=== PATIENT | male | born 1980 | race Caucasian/White ===

== ENCOUNTER 2018-04-21 13:33 | Emergency (ER) | payer SELFPAY ==
[~2018-04-21] VITALS: Ht 165.1 cm; Wt 90.7 kg
[~2018-04-21 13:33] MED LIST: AZIT-21 PO; CETI10CA PO; CLOT15CR4 TP; DIPH1TAB45 PO; DIPH25CA79 PO; DIPH50CA PO; DOXY100T2 PO; GUAI120016 PO; HC2.5C30 TOP; MECL25TA3 PO; METH4TAB PO; NAPR-243 PO; NF-ESOM40C PO; PRD20T PO; PRD50T PO; TRM50T PO
[2018-04-21] MEDS ORDERED: FLUORESCEIN (FLUOR-I-STRIPS) 1 MG STRP OU ONE (14:30)
[2018-04-21] MEDS ORDERED: BSS 15 ML IR ONE (14:30)
[2018-04-21] MEDS ORDERED: POLY/TRIMETH (POLYTRIM) OPHTH 10 ML BTL OU ONE (14:30)
[2018-04-21] MEDS ORDERED: TETRACAINE 0.5% OPHTH SOLN 4 ML BTL (SINGLE DOSE ONLY) OU ONE (14:30)
[2018-04-21] MEDS ORDERED: RX-TOBRA/DEXAMETH (TOBRADEX) OP. SUSP 2.5 ML BTL ONE (15:22)
--- NOTE | 2018-04-21 15:42 | ED EENT ---
History of Present Illness General Chief Complaint: Eye Problems Stated Complaint: EYE PAIN Nursing Triage Note: PT CO OF L EYE PAIN STATES GOT SOMETHING IN IT YESTERDAY, STATES FEELS LIKE STILL IN IT Source: patient Exam Limitations: no limitations History of Present Illness Date Seen by Provider: Apr 21, 2018 Time Seen by Provider: 14:30 Initial Comments The patient is a 37 year old male who presents to the emergency room for left eye pain and possible foreign body. 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 No visual loss. Timing/Duration: yesterday Location: eye (L) Prearrival Treatment: flushing eyes Associated Symptoms: denies symptoms Allergies and Home Medications Allergies Coded Allergies: Hydrocodone (Verified Adverse Reaction, MIGRAIN, 06/07/12) Home Medications Cetirizine HCl 10 Mg Capsule, 10 MG PO DAILY, (Reported) Patient Home Medication List Home Medication List Reviewed: Yes Review of Systems Review of Systems Constitutional: no symptoms reported, see HPI Eyes: See HPI, Foreign Body Sensation, Pain; Denies Vision Changes All Other Systems Reviewed Negative Unless Noted: Yes Past Zpbdfzc-Xqmwgm-Oynqkg Hx Past Med/Social Hx: Reviewed Nursing Past Med/Soc Hx Patient Social History Alcohol Use: Denies Use Recreational Drug Use: No Smoking Status: Never a Smoker Recent Foreign Travel: No Contact w/Someone Who Travel: No Recent Infectious Disease Expo: No Recent Hopitalizations: No Physical Abuse: No Sexual Abuse: No Immunizations Up To Date Tetanus Booster (TDap): Unknown Date of Influenza Vaccine: Mar 26, 2013 Seasonal Allergies Seasonal Allergies: Yes Past Medical History Surgeries: No Respiratory: No Cardiac: No Neurological: No Reproductive Disorders: No Sexually Transmitted Disease: No Genitourinary: No Gastrointestinal: No Gastroesophageal Reflux Musculoskeletal: No Endocrine: No HEENT: No Cancer: No Psychosocial: No Integumentary: No Blood Disorders: No Family Medical History Reviewed Nursing Family Hx No Pertinent Family Hx Visual Acuity : Eye Location: Bilaterally Vision Acuity Degree: 20/20 Physical Exam Vital Signs Vital Signs - First Documented 04/21/18 14:20 Temp 97.4 Pulse 94 Resp 18 B/P (MAP) 142/105 (117) Pulse Ox 97 Height, Weight, BMI Height: 5'5.00" Weight: 200lbs. oz. 90.474641ud; 32.11 BMI Method:Stated General Appearance: WD/WN, no apparent distress Eyes: right eye normal inspection; left eye conjunctival inflammation, left eye foreign body, left eye other (conjunctival abrasion at the 7oclock position. Small piece of grass was removed with a cotton swab. ); bilateral eye PERRL, bilateral eye EOMI Nose: normal inspection Cardiovascular: normal peripheral pulses, regular rate, rhythm, no edema, no gallop, no JVD, no murmur Respiratory: chest non-tender, lungs clear, normal breath sounds, no respiratory distress, no accessory muscle use Neurologic/Psychiatric: alert, normal mood/affect, oriented x 3 Skin: normal color, warm/dry Progress/Results/Core Measures Results/Orders My Orders Medications Given in ED Vital Signs/I&O Blood Pressure Mean: 117 Progress Progress Note : Time: 15:40 Progress Note I have seen and evaluated the patient. I have discussed the findings with Dr. Florez and he recommends putting him on Tobradex for inflammation and abx coverage and having him follow up with his office next week. The patient agrees with plan of care. Return precautions were given. Departure Impression Primary Impression: Foreign body in conjunctival sac Disposition: HOME, SELF-CARE Condition: Stable/Unchanged Departure-Patient Inst. Decision time for Depature: 15:40 Referrals: [facility][1[facility]NATHALIE (PCP/Family) Primary Care Physician ANGELI GILES OD Patient Instructions: Black Eye, Corneal Abrasion (DC) Add. Discharge Instructions: Used eyedrops as prescribed 2 drops 3 times a day to the affected eye for 5 days. [facility] Curiel[facility] office within 1 week for recheck. Return back to the emergency room for any worsening symptoms or concerns as needed. All discharge instructions reviewed with patient and/or family. Voiced understanding. VINCE VELASCO Apr 21, 2018 15:42
[2018-04-21 15:47] VITALS: BP 142/105
== END 2018-04-21 15:47 | disposition home or self-care (01) ==
LOC: EDUNIT# 13:33 → ER 13:34
DX: T15.12XA Foreign body in conjunctival sac, left eye, initial encounter (principal); K21.9 Gastro-esophageal reflux disease without esophagitis; Z88.5 Allergy status to narcotic agent
CPT/HCPCS: 99283

== ENCOUNTER 2019-06-27 11:40 | Emergency (ER) | payer SELFPAY ==
[~2019-06-27] VITALS: Ht 165.1 cm; Wt 90.1 kg
[2019-06-27] MEDS ORDERED: cefTRIAXone 1,000 MG/2.86 ml vial (IM ONLY) IM ONE (14:45)
[2019-06-27] MEDS ORDERED: LIDOCAINE 1% INJ 20 ML 20 ML VIAL INJ ONE (14:45)
[2019-06-27] MEDS ORDERED: AZIT250T12 PO (14:48)
--- NOTE | 2019-06-27 14:48 | ED General ---
General Chief Complaint: Cough/Cold/Flu Symptoms Stated Complaint: CONGESTION Nursing Triage Note: AMB TO ROOM C/O COUGH AND CONGESTION FOR 24HRS. REPORTS UNABALE TO TAKE PO PREDISONE IT CAUSES NAUSEA. Nursing Sepsis Screen: No Definite Risk Source of Information: Patient Exam Limitations: No Limitations Allergies and Home Medications Allergies Coded Allergies: hydrocodone (Verified Adverse Reaction, Unknown, MIGRAIN, 06/27/19) Uncoded Allergies: PREDISONE (Adverse Reaction, Unknown, CAUSES NAUSEA, 06/27/19) Home Medications Cetirizine HCl 10 Mg Capsule, 10 MG PO DAILY, (Reported) Past Ozrfszd-Saclpd-Zblmzb Hx Patient Social History Alcohol Use: Denies Use Recreational Drug Use: No Smoking Status: Never a Smoker Recent Foreign Travel: No Contact w/Someone Who Travel: No Recent Infectious Disease Expo: No Recent Hopitalizations: No Immunizations Up To Date Tetanus Booster (TDap): Unknown Date of Influenza Vaccine: Mar 26, 2013 Seasonal Allergies Seasonal Allergies: Yes Past Medical History Surgeries: No Respiratory: No Cardiac: No Neurological: No Reproductive Disorders: No Sexually Transmitted Disease: No Genitourinary: No Gastrointestinal: No Gastroesophageal Reflux Musculoskeletal: No Endocrine: No HEENT: No Cancer: No Psychosocial: No Integumentary: No Blood Disorders: No Family Medical History No Pertinent Family Hx Physical Exam Vital Signs Vital Signs - First Documented 06/27/19 12:23 Temp 36.8 Pulse 99 Resp 18 B/P (MAP) 140/108 (119) Pulse Ox 98 Capillary Refill : Less Than 3 Seconds Height, Weight, BMI Height: 5'5.00" Weight: 200lbs. oz. 90.873365no; 33.00 BMI Method:Stated Progress/Results/Core Measures Suspected Sepsis Recent Fever Within 48 Hours: No Infection Criteria Present: Suspected New Infection New/Unexplained Altered Menta: No Sepsis Screen: No Definite Risk SIRS Temperature: Pulse: 99 Respiratory Rate: 18 Blood Pressure 140 /108 Mean: 119 Results/Orders Micro Results Microbiology 06/27/19 Influenza Types A,B Antigen (TARAS) - Final, Complete My Orders Orders - TALYA BURLESON MD Influenza A And B Antigens (06/27/19 13:46) Rocephin 1000mg Im (06/27/19 14:45) Lidocaine 1% Inj 20 Ml (Xylocaine 1% Inj (06/27/19 14:45) Vital Signs/I&O 06/27/19 12:23 Temp 36.8 Pulse 99 Resp 18 B/P (MAP) 140/108 (119) Pulse Ox 98 Capillary Refill : Less Than 3 Seconds Blood Pressure Mean: 119 Departure Impression Primary Impression: Flu-like symptoms Additional Impression: Pharyngitis Qualified Codes: J02.9 - Acute pharyngitis, unspecified Disposition: 01 HOME, SELF-CARE Condition: Improved Departure-Patient Inst. Decision time for Depature: 14:46 Referrals: [facility] [place] (PCP/Family) Primary Care Physician Patient Instructions: Sore Throat in Adults Add. Discharge Instructions: Complete your antibiotics as prescribed. You may take Tylenol and/or ibuprofen for pain. Drink plenty of clear liquids to stay well-hydrated. Return to care if you have worsening symptoms despite treatment. All discharge instructions reviewed with patient and/or family. Voiced understan titi. Scripts Azithromycin (Azithromycin) 250 Mg Tablet 250 MG PO UD, #6 TAB TAKE 2 TABLETS ON DAY ONE THEN TAKE 1 TABLET DAILY FOR FOUR MORE DAYS Prov: TALYA BURLESON MD 06/27/19 TALYA BURLESON MD Jun 27, 2019 14:48
[2019-06-27 15:00] VITALS: BP 140/108
== END 2019-06-27 15:08 | disposition home or self-care (01) ==
LOC: EDUNIT# 11:40 → ER 11:41
DX: R09.89 Other specified symptoms and signs involving the circulatory and respiratory systems (principal); J02.9 Acute pharyngitis, unspecified; K21.9 Gastro-esophageal reflux disease without esophagitis; Z88.5 Allergy status to narcotic agent; Z88.8 Allergy status to other drugs, medicaments and biological substances
CPT/HCPCS: 87804; 96372

== ENCOUNTER 2019-07-27 17:46 | Emergency (ER) | payer BC, OTHER ==
[~2019-07-27] VITALS: Ht 165 cm; Wt 86.0 kg
[~2019-07-27 17:46] MED LIST changes: +AZIT250T12 PO
[2019-07-27] MEDS ORDERED: GUAI200T4 PO (18:00)
[2019-07-27] MEDS ORDERED: NF-ESOM40C PO (18:00)
[2019-07-27] MEDS ORDERED: DIPH25CA79 PO (18:00)
--- NOTE | 2019-07-27 18:06 | ED Upper Extremity ---
General Chief Complaint: Upper Extremity Stated Complaint: RT HAND INJ Nursing Triage Note: PT TO TRIAGE CO OF PUNCHING WALL W R HAND. HAS PAIN AND SWELLING Nursing Sepsis Screen: No Definite Risk Source: patient Exam Limitations: no limitations History of Present Illness Date Seen by Provider: Jul 27, 2019 Time Seen by Provider: 18:05 Initial Comments To ER with right hand pain over the fourth and fifth metacarpal after he punched a wall about 30 minutes prior to arrival. The pain shoots all the way up to his elbow. Onset: just prior to arrival Severity: moderate Pain/Injury Location: right hand Method of Injury: direct blow Modifying Factors: Improves With Movement Allergies and Home Medications Allergies Coded Allergies: hydrocodone (Verified Adverse Reaction, Unknown, MIGRAIN, 06/27/19) Uncoded Allergies: PREDISONE (Adverse Reaction, Unknown, CAUSES NAUSEA, 06/27/19) Home Medications Cetirizine HCl 10 Mg Capsule, 10 MG PO DAILY, (Reported) Oxycodone HCl/Acetaminophen 1 Each Tablet, 1 TAB PO Q4H Prescribed by: RAYNE GUTIERREZ on 07/27/19 0818 Patient Home Medication List Home Medication List Reviewed: Yes Review of Systems Constitutional: see HPI EENTM: see HPI Respiratory: no symptoms reported Cardiovascular: no symptoms reported Genitourinary: no symptoms reported Musculoskeletal: see HPI Skin: no symptoms reported Psychiatric/Neurological: No Symptoms Reported Past Yplxwgn-Zgsmdt-Itawyi Hx Patient Social History Alcohol Use: Denies Use Recreational Drug Use: No Smoking Status: Never a Smoker Recent Foreign Travel: No Contact w/Someone Who Travel: No Recent Infectious Disease Expo: No Recent Hopitalizations: No Physical Abuse: No Sexual Abuse: No Immunizations Up To Date Tetanus Booster (TDap): Unknown Date of Influenza Vaccine: Mar 26, 2013 Seasonal Allergies Seasonal Allergies: Yes Past Medical History Surgeries: No Respiratory: No Cardiac: No Neurological: No Reproductive Disorders: No Sexually Transmitted Disease: No Genitourinary: No Gastrointestinal: No Gastroesophageal Reflux Musculoskeletal: No Endocrine: No HEENT: No Cancer: No Psychosocial: No Integumentary: No Blood Disorders: No Family Medical History No Pertinent Family Hx Physical Exam Vital Signs Vital Signs - First Documented 07/27/19 17:53 Temp 36.8 Pulse 92 Resp 18 B/P (MAP) 142/85 (104) Pulse Ox 98 Capillary Refill : Less Than 3 Seconds Height, Weight, BMI Height: 5'5.00" Weight: 200lbs. oz. 90.841417cw; 31.00 BMI Method:Stated General Appearance: WD/WN, no apparent distress HEENT: PERRL/EOMI, normal ENT inspection Neck: non-tender, full range of motion Respiratory: no respiratory distress, no accessory muscle use Shoulder: normal inspection, non-tender Elbow/Forearm: normal inspection, non-tender Wrist: Yes non-tender Hand: Right, deformity, ecchymosis, limited ROM Neurologic/Psychiatric: alert, normal mood/affect, oriented x 3 Skin: normal color, warm/dry Progress/Results/Core Measures Results/Orders My Orders Orders - RAYNE GUTIERREZ APRN Hand, Right, 3 Views (07/27/19 18:01) Oxycodone/Apap 5/325mg Tablet (Percocet (07/27/19 18:15) Hand, Right, 2 Views (07/27/19 19:02) Medications Given in ED Current Medications Medications Dose Ordered Sig/Janice Route Start Time Stop Time Status Last Admin Dose Admin Oxycodone/ Acetaminophen 1 tab ONCE ONCE PO 07/27/19 18:15 07/27/19 18:16 DC 07/27/19 18:12 1 TAB Vital Signs/I&O 07/27/19 17:53 Temp 36.8 Pulse 92 Resp 18 B/P (MAP) 142/85 (104) Pulse Ox 98 Blood Pressure Mean: 104 Departure Communication (Admissions) Hematoma block using 4 mL of 0.5% bupivacaine without epinephrine. Fracture reduced as best possible. Splinted in an ulnar gutter style splint, repeat x- rays. Impression Primary Impression: Boxers fracture Qualified Codes: S62.339A - Displaced fracture of neck of unspecified metacarpal bone, initial encounter for closed fracture Disposition: HOME, SELF-CARE Condition: Stable Departure-Patient Inst. Decision time for Depature: 18:52 Referrals: [facility] (PCP/Family) Primary Care Physician YUNG STARK MD,LISA Evans MD Patient Instructions: Boxer's Fracture Add. Discharge Instructions: 1. Keep the hand in a splint at all times until you follow up with orthopedics. Call orthopedic surgeon of your choosing. List of local orthopedists has been provided for you. All discharge instructions reviewed with patient and/or family. Voiced understanding. Scripts Oxycodone HCl/Acetaminophen (Percocet 5-325 mg Tablet) 1 Each Tablet 1 TAB PO Q4H for PAIN-MODERATE MDD 6 TABS for 7 Days, #20 TAB Prov: RAYNE GUTIERREZ APRN 07/27/19 RAYNE GUTIERREZ APRN Jul 27, 2019 18:06
[2019-07-27] MEDS ORDERED: oxyCODONE/APAP 5/325MG (PERCOCET 5) TABLET PO ONE (18:15)
--- NOTE | 2019-07-27 18:20 | Diagnostic Imaging Report ---
INDICATION: Right hand injury, pain. COMPARISON: None. FINDINGS: Four views of the right hand demonstrate a nondisplaced but angulated distal fifth metacarpal fracture. There is no intra-articular involvement. No foreign body. IMPRESSION: Angulated distal fifth metacarpal fracture. Dictated by: Dictated on workstation # [id number]
[2019-07-27] MEDS ORDERED: OXYC1TAB87 PO (18:54)
[2019-07-27 19:20] VITALS: BP 137/81
--- NOTE | 2019-07-27 19:22 | Diagnostic Imaging Report ---
INDICATION: Cast placement COMPARISON: Imaging from the same date TECHNIQUE: Two radiographs of the right hand dated 07/27/2019 FINDINGS: Interval placement of splint material overlying the medial right hand. Previously noted 5th metacarpal neck fracture is again identified. Alignment appears essentially stable from the prior exam. Slight apex posterior medial angulation is again seen. No new fracture or dislocation. IMPRESSION: Interval splinting of previously noted 5th metacarpal neck fracture with alignment remaining stable. Dictated by: Dictated on workstation # [id number]
== END 2019-07-27 19:22 | disposition home or self-care (01) ==
LOC: EDUNIT# 17:46 → ER 17:47
DX: S62.336A Displaced fracture of neck of fifth metacarpal bone, right hand, initial encounter for closed fracture (principal); Z88.8 Allergy status to other drugs, medicaments and biological substances; W22.8XXA Striking against or struck by other objects, initial encounter
CPT/HCPCS: 26605; 29125; 73120; 73130

== ENCOUNTER 2020-01-08 23:09 | Emergency (ER) | payer BC ==
[~2020-01-08] VITALS: Ht 165 cm; Wt 90.1 kg
[~2020-01-08 23:09] MED LIST changes: +GUAI200T4 PO; +OXYC1TAB87 PO
[2020-01-08 23:37] LABS: BILIRUBIN,URINE NEGATIVE (NEGATIVE); CLARITY,URINE CLEAR; COLOR,URINE YELLOW; GLUCOSE, URINE (UA) NEGATIVE (NEGATIVE); KETONES,URINE NEGATIVE (NEGATIVE); LEUKOCYTE ESTERASE ,URINE NEGATIVE (NEGATIVE); NITRITE,URINE NEGATIVE (NEGATIVE); PH,URINE 5.5 (5-9); PROTEIN,URINE NEGATIVE (NEGATIVE)
[2020-01-08 23:41] LABS: BASOPHILS % (AUTO) 0 % (0-10); EOSINOPHILS # (AUTO) 0.2 10^3/uL (0.0-0.3); EOSINOPHILS % (AUTO) 2 % (0-10); HEMATOCRIT 43 % (40-54); HEMOGLOBIN 15.2 G/DL (13.3-17.7); LYMPHOCYTES # (AUTO) 4.2 X 10^3 (1.0-4.0); LYMPHOCYTES % (AUTO) 38 % (12-44); MEAN CORPUSCULAR HEMOGLOBIN 30 PG (25-34); MEAN CORPUSCULAR HGB CONC 35 G/DL (32-36); MEAN CORPUSCULAR VOLUME 84 FL (80-99); MEAN PLATELET VOLUME 9.5 FL (7.4-10.4); MONOCYTES # (AUTO) 0.8 X 10^3 (0.0-1.0); MONOCYTES % (AUTO) 7 % (0-12); NEUTROPHILS # (AUTO) 5.9 X 10^3 (1.8-7.8); NEUTROPHILS % (AUTO) 53 % (42-75); PLATELET COUNT 265 10^3/uL (130-400); RED CELL DISTRIBUTION WIDTH 12.9 % (10.0-14.5); WHITE BLOOD COUNT 11.2 10^3/uL (4.3-11.0)
[2020-01-08 23:49] LABS: BACTERIA,URINE NEGATIVE /HPF; SQUAMOUS EPITHELIAL CELL,UR 0-2 /HPF
[2020-01-08] MEDS ORDERED: KETOROLAC 30 MG/ML VIAL IVP STA (23:50)
[2020-01-08 23:53] LABS: ALBUMIN 4.5 GM/DL (3.2-4.5)
[2020-01-08 23:54] LABS: POTASSIUM 3.8 MMOL/L (3.6-5.0)
[2020-01-08 23:55] LABS: CALCIUM 9.4 MG/DL (8.5-10.1)
[2020-01-08 23:56] LABS: TOTAL PROTEIN 8.1 GM/DL (6.4-8.2)
[2020-01-08 23:58] LABS: BILIRUBIN,TOTAL 0.4 MG/DL (0.1-1.0)
[2020-01-09] LABS: CREATININE SERUM 1.4 MG/DL (0.60-1.30)
[2020-01-09] MEDS ORDERED: LACTATED RINGERS 1,000 ML IV ONE (00:06)
--- NOTE | 2020-01-09 00:06 | ED Abdominal Pain ---
General Chief Complaint: Abdominal/GI Problems Stated Complaint: POSS HERNIA Nursing Triage Note: Patient reports swelling in his L groin. 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 PCP: VIDAL, VIRI ESCALANTE Allergies and Home Medications Allergies Coded Allergies: hydrocodone (Verified Adverse Reaction, Unknown, MIGRAIN, 06/27/19) Uncoded Allergies: PREDISONE (Adverse Reaction, Unknown, CAUSES NAUSEA, 06/27/19) Home Medications Cetirizine HCl 10 Mg Capsule, 10 MG PO DAILY, (Reported) Oxycodone HCl/Acetaminophen 1 Each Tablet, 1 TAB PO Q4H Prescribed by: RAYNE GUTIERREZ on 07/27/19 1854 Tramadol HCl 50 Mg Tablet, 50 MG PO Q4H Prescribed by: SALOMÓN FERNANDEZ on 01/09/20 0140 Patient Home Medication List Home Medication List Reviewed: Yes Review of Systems Review of Systems Constitutional: no symptoms reported; No chills, No diaphoresis, No dizziness, No fever, No malaise, No weakness Respiratory: No Symptoms Reported Cardiovascular: No Symptoms Reported Gastrointestinal: See HPI, Abdominal Pain; Denies Constipated, Denies Diarrhea, Denies Nausea, Denies Vomiting Genitourinary: No Symptoms Reported; Denies Burning, Denies Discharge, Denies Drainage, Denies Flank Pain, Denies Hematuria, Denies Pain, Denies Urgency Musculoskeletal: no symptoms reported Skin: no symptoms reported Psychiatric/Neurological: No Symptoms Reported Endocrine: No Symptoms Reported Hematologic/Lymphatic: No Symptoms Reported Past Sabmcgp-Cejpjg-Gljjxj Hx Patient Social History Alcohol Use: Denies Use Recreational Drug Use: No Smoking Status: Never a Smoker 2nd Hand Smoke Exposure: No Recent Foreign Travel: No Contact w/Someone Who Travel: No Recent Infectious Disease Expo: No Recent Hopitalizations: No Immunizations Up To Date Tetanus Booster (TDap): Unknown Date of Influenza Vaccine: Mar 26, 2013 Seasonal Allergies Seasonal Allergies: Yes Past Medical History Surgeries: No Respiratory: No Cardiac: No Neurological: No Reproductive Disorders: No Sexually Transmitted Disease: No Genitourinary: No Gastrointestinal: Yes Gastroesophageal Reflux Musculoskeletal: No Endocrine: No HEENT: Yes (ALLERGIES) Cancer: No Psychosocial: No Integumentary: No Blood Disorders: No Family Medical History No Pertinent Family Hx Physical Exam Vital Signs Vital Signs - First Documented 01/08/20 23:16 Temp 37.0 Pulse 103 Resp 18 B/P (MAP) 148/105 (119) Pulse Ox 98 Capillary Refill : Less Than 3 Seconds Height/Weight/BMI Height: 5'5.00" Weight: 200lbs. oz. 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, no motor/sensory deficits, alert, normal mood/affect, oriented x 3 Skin: normal color, warm/dry Progress/Results/Core Measures Results/Orders Lab Results Laboratory Tests Test 01/08/20 23:20 01/08/20 23:30 Range/Units Urine Color YELLOW Urine Clarity CLEAR Urine pH 5.5 5-9 Urine Specific [place] >=1.030 1.016-1.022 Urine Protein NEGATIVE NEGATIVE Urine Glucose (UA) NEGATIVE NEGATIVE Urine Ketones NEGATIVE NEGATIVE Urine Nitrite NEGATIVE NEGATIVE Urine Bilirubin NEGATIVE NEGATIVE Urine Urobilinogen 0.2 < = 1.0 MG/DL Urine Leukocyte Esterase NEGATIVE NEGATIVE Urine RBC (Auto) NEGATIVE NEGATIVE Urine RBC NONE /HPF Urine WBC NONE /HPF Urine Squamous Epithelial Cells 0-2 /HPF Urine Crystals NONE /LPF Urine Bacteria NEGATIVE /HPF Urine Casts NONE /LPF Urine Mucus NEGATIVE /LPF Urine Culture Indicated NO White Blood Count 11.2 H 4.3-11.0 10^3/uL Red Blood Count 5.13 4.35-5.85 10^6/uL Hemoglobin 15.2 13.3-17.7 G/DL Hematocrit 43 40-54 % Mean Corpuscular Volume 84 80-99 FL Mean Corpuscular Hemoglobin 30 25-34 PG Mean Corpuscular Hemoglobin Concent 35 32-36 G/DL Red Cell Distribution Width 12.9 10.0-14.5 % Platelet Count 265 130-400 10^3/uL Mean Platelet Volume 9.5 7.4-10.4 FL Neutrophils (%) (Auto) 53 42-75 % Lymphocytes (%) (Auto) 38 12-44 % Monocytes (%) (Auto) 7 0-12 % Eosinophils (%) (Auto) 2 0-10 % Basophils (%) (Auto) 0 0-10 % Neutrophils # (Auto) 5.9 1.8-7.8 X 10^3 Lymphocytes # (Auto) 4.2 H 1.0-4.0 X 10^3 Monocytes # (Auto) 0.8 0.0-1.0 X 10^3 Eosinophils # (Auto) 0.2 0.0-0.3 10^3/uL Basophils # (Auto) 0.0 0.0-0.1 10^3/uL Sodium Level 140 135-145 MMOL/L Potassium Level 3.8 3.6-5.0 MMOL/L Chloride Level 105 98-107 MMOL/L Carbon Dioxide Level 20 L 21-32 MMOL/L Anion Gap 15 H 5-14 MMOL/L Blood Urea Nitrogen 19 H 7-18 MG/DL Creatinine 1.40 H 0.60-1.30 MG/DL Estimat Glomerular Filtration Rate 57 BUN/Creatinine Ratio 14 Glucose Level 120 H 70-105 MG/DL Calcium Level 9.4 8.5-10.1 MG/DL Corrected Calcium 9.0 8.5-10.1 MG/DL Total Bilirubin 0.4 0.1-1.0 MG/DL Aspartate Amino Transf (AST/SGOT) 34 5-34 U/L Alanine Aminotransferase (ALT/SGPT) 55 0-55 U/L Alkaline Phosphatase 106 40-136 U/L Total Protein 8.1 6.4-8.2 GM/DL Albumin 4.5 3.2-4.5 GM/DL Amylase Level 76 25-125 U/L Lipase 53 8-78 U/L My Orders Orders - JIM,SALOMÓN K DO Ed Iv/Invasive Line Start (01/08/20 23:15) Amylase (01/08/20 23:15) Cbc With Automated Diff (01/08/20 23:15) Comprehensive Metabolic Panel (01/08/20 23:15) Lipase (01/08/20 23:15) Ua Culture If Indicated (01/08/20 23:15) Ketorolac Injection (Toradol Injection) (01/08/20 23:50) Ct Abdomen/Pelvis W (01/09/20 00:01) Abdomen, Flat & Upright/Decub (01/09/20 00:01) Ed Iv/Invasive Line Start (01/09/20 00:06) Lactated Ringers (Lr 1000 Ml Iv Solution (01/09/20 00:06) Iohexol Injection (Omnipaque 350 Mg/Ml 1 (01/09/20 00:30) Ns (Ivpb) (Sodium Chloride 0.9% Ivpb Bag (01/09/20 00:30) Rx-Tramadol Hcl (Rx-Ultram) (01/09/20 01:38) Medications Given in ED Current Medications Medications Dose Ordered Sig/Janice Route Start Time Stop Time Status Last Admin Dose Admin Iohexol 100 ml ONCE ONCE IV 01/09/20 00:30 01/09/20 00:31 UNV 01/09/20 00:27 100 ML Lactated Ringer's 1,000 ml @ 0 mls/hr Q0M ONCE IV 01/09/20 00:06 01/09/20 00:07 DC 01/09/20 00:42 0 MLS/HR Sodium Chloride 80 ml ONCE ONCE IV 01/09/20 00:30 01/09/20 00:31 UNV 01/09/20 00:27 80 ML Vital Signs/I&O 01/08/20 23:16 Temp 37.0 Pulse 103 Resp 18 B/P (MAP) 148/105 (119) Pulse Ox 98 Blood Pressure Mean: 119 Progress Progress Note : Progress Note GIVEN TORADOL FOR PAIN WITH MODERATE IMPROVEMENT AFTER OBTAINING CT RESULTS, REDUCTION OF HERNIA ATTEMPTED--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 PT STATES IS NOT A "HARD KNOT" LIKE IT WAS EARLIER, BUT IS STILL BULGING, BUT NOT BIG. ABLE TO PARTIALLY REDUCE IT, BUT UNABLE TO COMPLETELY REDUCE IT. UNABLE TO GIVE ADDITIONAL PAIN MEDICATION OR MUSCLE RELAXANT HE DROVE HIMSELF AND DOES NOT HAVE ANYONE TO GIVE HIM A RIDE HOME AT THIS HOUR Diagnostic Imaging Comments ABDOMEN XRAYS--NO ACUTE PROCESS, PENDING RADIOLOGIST REVIEW CT ABDOMEN / PELVIS--LEFT INGUINAL FAT-CONTAINING HERNIA APPROXIMATELY 4.5 CM IN DIAMETER. NO OBSTRUCTION--PER STAT RAD VIA FAX AT 0131 Reviewed: Reviewed by Me Departure Impression Primary Impression: Left inguinal hernia Disposition: HOME, SELF-CARE Condition: Stable Departure-Patient Inst. Referrals: [facility] (PCP/Family) Primary Care Physician MARÍA HURTADO DO Patient Instructions: Groin Hernia (DC) Add. Discharge Instructions: TYLENOL AND IBUPROFEN NEEDED FOR PAIN NO LIFTING OVER 5 LBS, NO TWISTING OR BENDING AT WAIST FOLLOW UP WITH DR. HURTADO OR SURGEON OF CHOICE THIS WEEK FOR FURTHER CARE, RETURN TO ER IF WORSE All discharge instructions reviewed with patient and/or family. Voiced unders tanding. Scripts Tramadol HCl (Ultram) 50 Mg Tablet 50 MG PO Q4H for Pain, #20 TAB Prov: SALOMÓN FERNANDEZ DO 01/09/20 Work/School Note: Work Release Form Date Seen in the Emergency Department: J 2019 Return to Work: Jan 10, 2020 Other Restrictions Listed Below: NO LIFTING OVER 5 LBS, NO TWISTING OR BENDING AT WAIST UNTIL CLEARED BY SALOMÓN ALBERT DO Jan 09, 2020 00:06
[2020-01-09] MEDS ORDERED: IOHEXOL 350 MG/ML 100 ML (OMNIPAQUE 350) VIAL IV ONE (00:30)
[2020-01-09] MEDS ORDERED: NS 100 ML (IVPB) BAG IV ONE (00:30)
[2020-01-09] MEDS ORDERED: RX-TRAMADOL 50 MG (ULTRAM) TAB PPK#4 PO STA (01:38)
[2020-01-09] MEDS ORDERED: TRAM-42 PO (01:40)
[2020-01-09 01:46] VITALS: BP 134/98
--- NOTE | 2020-01-09 06:38 | Diagnostic Imaging Report ---
INDICATION: Abdominal pain. FINDINGS: Upright and supine abdomen. Lung bases are clear. No organomegaly. No pathologic calcification. There is normal stool and gas pattern throughout colon. Stomach and small bowel are not distended. No bony abnormalities. IMPRESSION: Normal abdomen series. Dictated by: Dictated on workstation # [id number]
--- NOTE | 2020-01-09 06:40 | Diagnostic Imaging Report ---
CT ABDOMEN/PELVIS W PROCEDURE: CT abdomen and pelvis with contrast. TECHNIQUE: Multiple contiguous axial images were obtained through the abdomen and pelvis after administration of intravenous contrast. INDICATION: Groin pain COMPARISON: None. FINDINGS: There is mild low-density throughout the liver indicating steatosis. No gallbladder, pancreatic or splenic abnormality identified. Adrenal glands and kidneys are also unremarkable. There is no evidence of bowel obstruction. No free fluid is seen within the abdominal or pelvic cavities. There is herniation of fat into the inguinal canals, greater on the left. No bowel hernia is identified. Partially opacified urinary bladder is unremarkable. Great vessels of the abdomen and pelvis are unremarkable. There is no evidence of acute osseous abnormality. IMPRESSION: Bilateral inguinal hernias containing fat, larger on the left. There is no evidence of bowel hernia or obstruction or other complication. Dictated by: Dictated on workstation # [id number]
== END 2020-01-09 01:47 | disposition home or self-care (01) ==
LOC: EDUNIT# 23:09 → ER 23:11
DX: K40.90 Unilateral inguinal hernia, without obstruction or gangrene, not specified as recurrent (principal); Z88.6 Allergy status to analgesic agent; Z88.8 Allergy status to other drugs, medicaments and biological substances
CPT/HCPCS: 36415; 74019; 74177; 80053; 81000; 82150; 83690; 85025

== ENCOUNTER 2020-01-14 05:42 | Outpatient (RCR) | payer BC ==
[~2020-01-14] VITALS: Ht 165.1 cm; Wt 87.6 kg
[~2020-01-14 05:42] MED LIST changes: +TRAM-42 PO
== END 2020-01-14 11:21 | disposition home or self-care (01) ==
LOC: PREOP 05:42
PROVIDERS: ATTEND Surgery
DX: Z01.812 Encounter for preprocedural laboratory examination (principal); K40.20 Bilateral inguinal hernia, without obstruction or gangrene, not specified as recurrent; Z20.828 Contact with and (suspected) exposure to other viral communicable diseases
CPT/HCPCS: 87635

== ENCOUNTER 2020-01-17 10:58 | Day surgery (SDC) | payer BC ==
[~2020-01-17] VITALS: Ht 165 cm; Wt 87.6 kg
[2020-01-17] VITALS (12 sets, daily range): BP systolic 120–138; BP diastolic 66–111
[2020-01-17] MEDS ORDERED: ceFAZolin 2 GM IV Premixed 50 ML IV ONE (11:15)
[2020-01-17] MEDS: LACTATED RINGERS 1,000 ML IV PRN ×2 (11:41→14:40)
--- NOTE | 2020-01-17 11:57 | Progress Note-Pre Operative ---
Pre-Operative Progress Note H&P Reviewed The H&P was reviewed, patient examined and no changes noted. Date Seen by Provider: Jan 17, 2020 Time Seen by Provider: 11:55 Date H&P Reviewed: Jan 17, 2020 Time H&P Reviewed: 11:50 Pre-Operative Diagnosis: symptomatic bilateral inguinal hernias PILAR VALENTIN APRN Jan 17, 2020 11:57
[2020-01-17] MEDS ORDERED: HYDR2TAB30 PO (12:00)
[2020-01-17] MEDS ORDERED: ACETAMINOPHEN 325 MG TABLET PO PRN (12:00)
[2020-01-17] MEDS ORDERED: ONDANSETRON 4 MG/2 ML (SDV) Z0FRAN IVP PRN ×2 (12:00→15:00)
--- NOTE | 2020-01-17 12:01 | Discharge Inst-Surgical ---
D/C Lap Instructions-KIDO Reconcile Patient Problems Problems Reviewed?: Yes New, Converted, or Re-Newed RX: RX on Chart Follow Up Appt in 2 weeks Activity as tolerated No driving for 24 hours No driving while on pain medications Incentive Spirometry use every 2 hours while awake Regular Diet Symptoms to Report: Fever over 101 degree F, Nausea/Vomiting Infection Signs and Symptoms to report: Increased redness, Foul odor of wound, Increased drainage Bathing instructions: May shower Operative Area Clean/Dry; Keep incision clean/dry If any problems/questions: Contact your physician or go to Emergency Room PILAR VALENTIN APRN Jan 17, 2020 12:01
[2020-01-17] MEDS ORDERED: BUP/EPI 0.5% 1:200,000 (SENSORCAINE) 30 ML VIAL ONE (12:39)
[2020-01-17] MEDS ORDERED: fentaNYL INJECTION 100 MCG/2 ML AMP ONE ×2 (12:59→15:15)
[2020-01-17] MEDS ORDERED: MIDAZOLAM 2 MG/2 ML (VERSED) VIAL ONE (13:00)
[2020-01-17] MEDS ORDERED: LIDOCAINE PF 2% 5 ML (XYLOCAINE) VIAL ONE (13:53)
[2020-01-17] MEDS ORDERED: ONDANSETRON 4 MG/2 ML (SDV) Z0FRAN ONE (13:53)
[2020-01-17] MEDS ORDERED: ROCURONIUM 10 MG/ML 5 ML SYRINGE IV ONE (13:53)
[2020-01-17] MEDS ORDERED: proPOfol 200 MG/20 ML (DIPRIVAN) VIAL IV ONE (13:53)
[2020-01-17] MEDS ORDERED: SEVOFLURANE (ULTANE) 15 ML INHAL SOLN ONE (14:04)
[2020-01-17] MEDS ORDERED: HYDROmorphone 2 MG/ML VIAL (DILAUDID) ONE (14:28)
[2020-01-17] MEDS ORDERED: NEOSTIGMINE 3 MG/3 ML VIAL ONE (14:29)
[2020-01-17] MEDS ORDERED: GLYCOPYRROLATE 0.2 MG/ML (ROBINUL) 2 ML VIAL ONE (14:29)
--- NOTE | 2020-01-17 14:42 | Progress Note-Post Operative ---
Post-Operative Progess Note Surgeon (s)/Restaurant Hospitality Manager (s) Surgeon ERICH ROBINS MD Restaurant Hospitality Manager: fer wharton EPIC ANESTHESIA ANALYST Pre-Operative Diagnosis symptomatic bilateral inguinal hernias Post-Operative Diagnosis indirect left, direct right inguinal hernias Procedure & Operative Findings Date of Procedure 01/17/20 Procedure Performed/Findings laparoscopic bilateral inguinal hernia repair with mesh. Anesthesia Type get Estimated Blood Loss Estimated blood loss (mL): minimal Specimens/Packing Specimens Removed none ERICH ROBINS MD Jan 17, 2020 14:42
[2020-01-17] MEDS ORDERED: HYDROmorphone 2 MG/ML VIAL (DILAUDID) IV ONE ×2 (15:00→17:00)
--- NOTE | 2020-01-17 15:04 | Anesthesia-General Post-Op ---
General Patient Condition Mental Status/LOC: Same as Preop Cardiovascular: Satisfactory Nausea/Vomiting: Absent Respiratory: Satisfactory Pain: Controlled Complications: Absent Post Op Complications Complications None Follow Up Care/Instructions Patient Instructions None needed. Anesthesia/Patient Condition Patient Condition Patient is doing well, no complaints, stable vital signs, no apparent adverse anesthesia problems. No complications reported per nursing. [place] [facility] [place]: Yes AMANDEEP SMITH CRNA Jan 17, 2020 15:04
[2020-01-17] MEDS ORDERED: fentaNYL INJECTION 100 MCG/2 ML AMP IVP ONE (15:15)
--- NOTE | 2020-01-17 15:22 | OPERATIVE REPORT ---
DATE OF SERVICE: 01/17/2020 ATTENDING PRIMARY DEPARTMENT CHAIRPERSON: Grzegorz Clements APRN. PREOPERATIVE DIAGNOSIS: Bilateral symptomatic reducible inguinal hernias. POSTOPERATIVE DIAGNOSIS: Right direct and left indirect inguinal hernia, both reducible. PROCEDURE PERFORMED: Laparoscopic bilateral inguinal hernia repair with mesh. SURGEON: Erich Robins MD. EVENING ANCHOR: Darrion Gonzalez APRN. ANESTHESIA: General endotracheal. ESTIMATED BLOOD LOSS: Minimal. FINDINGS: Same as postoperative diagnosis. DISPOSITION: The patient tolerated the procedure well. INDICATIONS FOR PROCEDURE: The patient is a 39-year-old male who was seen for left inguinal pain and bulge. He states that this was there for approximately nine months and has grown larger in size and become more painful. He presented to the emergency department and a CT scan was performed, which did show bilateral inguinal hernias with the left being larger than the right. DESCRIPTION OF PROCEDURE: The patient was brought to the operating room and laid supine on the table. After adequate IV pain and stated medications and general endotracheal intubation, the abdomen was prepped and draped in standard surgical fashion. A 0.5% Marcaine with epinephrine was then used to anesthetize the overlying skin in the infraumbilical rim and a crescent shaped skin incision was made using a 15 blade. A sharp towel clamp was used to retract the abdominal wall anteriorly and a Veress needle inserted with a low opening pressure of 0 mmHg. The abdomen was insufflated to 15 mmHg pressure. The Veress needle removed and a 10 mm XL trocar placed followed by a 10 mm 45-degree angle laparoscope visualizing the peritoneal cavity. A 4-quadrant abdominal exploration was performed. A left indirect inguinal hernia was identified with omentum within the hernia sac. There was a right direct inguinal hernia identified with nothing within the hernia sac. Under direct visualization, we then proceeded to place bilateral 5 mm ports after the skin and peritoneal lining were anesthetized using 0.5% Marcaine with epinephrine and a transverse skin incision was made using a 15 blade. The patient was then placed in a Trendelenburg position. We first proceeded with repair of the left inguinal hernia and a wedge of peritoneal lining was opened using a Sonicision and we proceeded laterally towards the conjoined tendon and inguinal ligament laterally and to Arpit's ligament medially. We then proceeded with inferior dissection, dissecting out the hernia sac with blunt dissection as well as a Sonicision. The cord and its surrounding contents identified and spared throughout the process as well as visualization of good hemostasis. A medium size left polypropylene mesh was then placed through the 10 mm port site and tacked to Arpit's ligament medially with Absorbable Tack and conjoint tendon laterally. The peritoneal lining was then placed over the mesh and a few absorbable tacks placed to hold this in place with visualization of good hemostasis. We then proceeded to repair the right inguinal hernia in a similar manner. A wedge of peritoneal lining was opened using the Sonicision. We proceeded medially towards the conjoined tendon and inguinal ligament laterally to Arpit's ligament medially. The hernia sac was then dissected out with blunt dissection as well as a Sonicision. The cord and its contents identified and spared throughout the process with visualization of good hemostasis as well. A right 3DMax polypropylene mesh was then placed through the 10 mm port site and tacked to Arpit's ligament medially with absorbable tacks and conjoint tendon laterally. The peritoneal lining was then placed over the mesh and a few tacks placed to hold this in place with visualization of good hemostasis. Good hemostasis was observed. The 10 mm port site fascia and peritoneum were then closed. The abdomen was then desufflated and the remaining ports were removed. All skin incisions were closed using 4-0 Monocryl subcuticular sutures. Wounds were then cleaned and covered with Dermabond. The patient tolerated the procedure well. We will start IV normal pain medication as well as a clear liquid diet. Once he is tolerating clears, has good pain control with oral pain medications and ambulating well, we will discharge him home. He will be instructed to do no heavy lifting or exertion absolutely for two weeks and then slowly incorporate some lifting and exertion, not 100% until six weeks from the surgery date. Job ID: [id number] DocumentID: [id number] Dictated Date: 01/17/2020 14:51:57 Coremaker Date: 01/17/2020 15:21:27 Dictated By: ERICH ROBINS MD
[2020-01-17] MEDS ORDERED: HYDROmorphone 2 MG/ML VIAL (DILAUDID) IV PRN (17:15)
[2020-01-17] MEDS ORDERED: PANTOPRAZOLE 40 MG (PROTONIX) TAB PO ONE (18:00)
--- NOTE | 2020-01-17 18:18 | NUR ---
CHETAN VILLALOBOS admitted to room , with an admitting diagnosis of bilateral hernia repair , on from day surgery via bed, accompanied by staff .CHETAN VILLALOBOS introduced to surroundings, call light, bed controls, phone, TV, temperature control, lights, meal times, smoking policy, visitor policy, side rail policy, bathrooms and showers. Patient Rights given to patient in the handbook. CHETAN VILLALOBOS verbalizes understanding that [facility] is not responsible for the loss or damage to any personal effects or valuables that are kept in the patients posession during their hospitalization. The following Patient Care Plans and discharge were discussed with the patient. CHETAN VILLALOBOS verbalizes understanding of Interdisciplinary Patient Education. Patient informed about the Rapid Response Team and its purpose.
[2020-01-17] MEDS: fentaNYL INJECTION 100 MCG/2 ML AMP IVP PRN ×2 (20:21→22:46)
[2020-01-17] MEDS: guaiFENesin (MUCINEX) 600 MG TAB PO SCH (20:26)
[2020-01-17] MEDS ORDERED: diphenhydrAMINE 25 MG TAB (BENADRYL) PO SCH (21:00)
[2020-01-18] MEDS: HYDROmorphone (DILAUDID) 2 MG TAB PO PRN ×4 (00:41→11:37)
[2020-01-18] MEDS: fentaNYL INJECTION 100 MCG/2 ML AMP IVP PRN (02:22)
[2020-01-18 04:41] VITALS: BP 115/65
[2020-01-18] MEDS: guaiFENesin (MUCINEX) 600 MG TAB PO SCH (08:05)
[2020-01-18 08:19] VITALS: BP 124/68
[2020-01-18] MEDS ORDERED: LORATADINE (CLARITIN) 10 MG TAB PO SCH (09:00)
[2020-01-18] MEDS ORDERED: DOCUSATE SODIUM 100 MG (COLACE) CAP PO SCH (09:00)
[2020-01-18] MEDS ORDERED: PANTOPRAZOLE 40 MG (PROTONIX) TAB PO SCH (09:00)
[2020-01-18] MEDS ORDERED: SUCRALFATE 1 GM (CARAFATE) TAB PO ONE (10:15)
[2020-01-18] MEDS ORDERED: PANTOPRAZOLE 40 MG (PROTONIX) VIAL IV ONE (10:15)
[2020-01-18] MEDS ORDERED: SIMETHICONE 80 MG (MYLICON) CHEW PO ONE (10:15)
--- NOTE | 2020-01-18 10:48 | Progress Note ---
Subjective Date Seen by a Provider: Jan 18, 2020 Time Seen by a Provider: 10:30 Subjective/Events-last exam doing better. tolerating diet and ambulating. pain controlled with PO meds. urinating well. Objective Exam Vital Signs Date Time Temp Pulse Resp B/P (MAP) Pulse Ox O2 Delivery O2 Flow Rate FiO2 01/18/20 08:55 95 Room Air 01/18/20 08:19 37.4 89 18 124/68 (86) 95 Room Air 01/18/20 04:41 37.4 86 18 115/65 (82) 94 Room Air 01/17/20 23:45 37.7 114 18 123/66 (85) 95 Room Air 01/17/20 20:20 Nasal Cannula 2.00 01/17/20 19:12 36.2 89 16 138/79 (98) 97 Nasal Cannula 2.00 01/17/20 18:11 Nasal Cannula 2.00 01/17/20 16:50 36.3 97 18 130/88 (102) 96 Nasal Cannula 01/17/20 16:20 36.3 89 18 130/88 (102) 88 Nasal Cannula 01/17/20 15:50 Nasal Cannula 2 01/17/20 15:50 35.6 80 16 136/88 99 01/17/20 15:50 35.6 80 16 136/88 (104) 99 Room Air 01/17/20 15:50 36.3 18 128/84 (99) 96 Nasal Cannula 2 01/17/20 15:40 18 126/88 (101) 96 Nasal Cannula 2 01/17/20 15:38 Nasal Cannula 2 01/17/20 15:30 18 133/93 (106) 96 OxyMask 3 01/17/20 15:26 OxyMask 3 01/17/20 15:20 18 133/88 (103) 99 OxyMask 3 01/17/20 15:12 OxyMask 6 01/17/20 15:10 18 131/84 (100) 97 OxyMask 6 01/17/20 15:05 OxyMask 6 01/17/20 15:00 18 120/98 (105) 100 OxyMask 6 01/17/20 14:50 OxyMask 6 01/17/20 14:50 36.5 20 135/88 (104) 100 OxyMask 6 7/23/20 11:10 36.8 94 18 133/111 118 97 Room Air I & O 01/18/20 07:00 Intake Total 3535 ml Output Total 925 ml Balance 2610 ml Capillary Refill : Less Than 3 SecondsLess Than 3 Seconds General Appearance: No Apparent Distress HEENT: PERRL/EOMI Neck: Full Range of Motion Respiratory: Chest Non Tender, Lungs Clear, Normal Breath Sounds Cardiovascular: Regular Rate, Rhythm Gastrointestinal: normal bowel sounds, soft, tenderness Extremity: Normal Capillary Refill Neurologic/Psychiatric: Alert, Oriented x3 Skin: Normal Color Lymphatic: No Adenopathy Assessment/Plan Assessment/Plan Assess & Plan/Chief Complaint s/p lap bilateral ing hernia repair with uncontrolled pain. doing better today. continue IS and ambulation. diet as tolerated. home soon. no lifting exertion for 6 weeks. ERICH ROBINS MD Jan 18, 2020 10:48
--- NOTE | 2020-01-18 10:58 | NUR ---
SAHRA Hamm made initial visit. Pt recovering from surgey and expressed no anabaptist needs at this time.
== END 2020-01-18 12:16 | disposition home or self-care (01) ==
LOC: SDC 10:58 → 4TH 17:43 → UNDOADMOB 17:53 → UNDODISOB 01-18 12:16 → SDC 01-18 12:16
PROVIDERS: ATTEND Surgery
DX: K40.20 Bilateral inguinal hernia, without obstruction or gangrene, not specified as recurrent (principal); K21.9 Gastro-esophageal reflux disease without esophagitis; Z11.2 Encounter for screening for other bacterial diseases
CPT/HCPCS: 49650; 87081; C1781 ×2

== ENCOUNTER 2020-03-15 19:10 | Emergency (ER) | payer BC ==
[~2020-03-15] VITALS: Ht 165 cm; Wt 87.0 kg
[~2020-03-15 19:10] MED LIST changes: +HYDR2TAB30 PO
[2020-03-15] MEDS ORDERED: LACTATED RINGERS 1,000 ML IV ONE (19:50)
--- NOTE | 2020-03-15 19:56 | ED Abdominal Pain ---
General Chief Complaint: Abdominal/GI Problems Stated Complaint: ABD PAIN Source of Information: Patient Exam Limitations: No Limitations History of Present Illness Date Seen by Provider: Mar 15, 2020 Time Seen by Provider: 19:42 Initial Comments Patient presents to the ER by private conveyance from home with chief complaint low bilateral abdominal pelvic pain currently 7 out of 10, constant. He says he's had this pain for the past month since having bilateral hernia repair by Dr. Whiting. He says he followed up a couple days after the surgery with the nurse practitioner until you're still having pain but the narcotic pain medicine was not helping. They said it was normal. He stopped using the opiates after a day and a half. He has been using ibuprofen 800 mg with moderate relief of pain. His last dose was at 1:30 this afternoon, 6 and half hours prior to arrival. He does not want anything for pain.. No nausea vomiting fever chills dysuria constipation. He's been passing bowel movements some of them have been soft. He has not tried follow-up with the surgeon since then. He says he's felt some fluid moving around in the area. No discharge Allergies and Home Medications Allergies Coded Allergies: hydrocodone (Verified Adverse Reaction, Unknown, MIGRAIN, 06/27/19) oxycodone (Verified Adverse Reaction, Unknown, MAKES ME ANGRY, 01/11/20) Home Medications Cetirizine HCl 10 Mg Capsule, 10 MG PO DAILY, (Reported) Diphenhydramine HCl 25 Mg Capsule, 25 MG PO HS, (Reported) Esomeprazole Magnesium 40 Mg Cap, 40 MG PO DAILY, (Reported) Guaifenesin 200 Mg Tablet, 200 MG PO BID, (Reported) Hydromorphone HCl 2 Mg Tablet, 1 MG PO Q4H Prescribed by: PILAR VALENTIN on 01/17/20 1200 Tramadol HCl 50 Mg Tablet, 50 MG PO Q4H Prescribed by: SALOMÓN FERNANDEZ on 01/09/20 0140 Patient Home Medication List Home Medication List Reviewed: Yes Review of Systems Review of Systems Constitutional: No chills, No diaphoresis, No fever, No malaise EENTM: No Blurred Vision, No Double Vision Respiratory: Denies Cough, Denies Shortness of Air Cardiovascular: Denies Chest Pain, Denies Lightheadedness Gastrointestinal: Denies Constipated, Denies Diarrhea, Denies Nausea Genitourinary: Denies Burning, Denies Drainage, Denies Frequency Musculoskeletal: No back pain, No joint pain All Other Systems Reviewed Negative Unless Noted: Yes Past Jbacbbh-Enztko-Ypqldg Hx Patient Social History Alcohol Use: Denies Use Recreational Drug Use: No Smoking Status: Never a Smoker 2nd Hand Smoke Exposure: No Recent Foreign Travel: No Contact w/Someone Who Travel: No Recent Hopitalizations: No Immunizations Up To Date Tetanus Booster (TDap): Unknown Date of Influenza Vaccine: Mar 26, 2013 Seasonal Allergies Seasonal Allergies: Yes Past Medical History Surgeries: No Respiratory: No Cardiac: No Neurological: No Reproductive Disorders: No Sexually Transmitted Disease: No Genitourinary: No Gastrointestinal: Yes Gastroesophageal Reflux Musculoskeletal: No Endocrine: No HEENT: Yes (ALLERGIES) Cancer: No Psychosocial: No Integumentary: No Blood Disorders: No Family Medical History No Pertinent Family Hx Physical Exam Vital Signs Vital Signs - First Documented 03/15/20 19:42 Temp 36.0 Pulse 91 Resp 18 B/P (MAP) 167/95 (119) O2 Delivery Room Air Capillary Refill : Height/Weight/BMI Height: 5'5.00" Weight: 200lbs. oz. 90.147460ch; 32.17 BMI Method:Stated General Appearance: WD/WN, mild distress HEENT: PERRL/EOMI, pharynx normal Neck: full range of motion, supple, normal inspection Respiratory: lungs clear, normal breath sounds, no respiratory distress, no accessory muscle use Cardiovascular: normal peripheral pulses, regular rate, rhythm, no edema Peripheral Pulses: 2+ Radial Pulses (R), 2+ Radial Pulses (L) Gastrointestinal: normal bowel sounds, soft, tenderness (quite tender to palpation along the lower abdomen with no fluctuance) Neurologic/Psychiatric: alert, normal mood/affect, oriented x 3 Skin: normal color, warm/dry Progress/Results/Core Measures Results/Orders Lab Results Laboratory Tests Test 03/15/20 19:50 03/15/20 20:00 Range/Units Urine Color YELLOW Urine Clarity CLEAR Urine pH 5.5 5-9 Urine Specific [place] >=1.030 1.016-1.022 Urine Protein TRACE H NEGATIVE Urine Glucose (UA) TRACE H NEGATIVE Urine Ketones NEGATIVE NEGATIVE Urine Nitrite NEGATIVE NEGATIVE Urine Bilirubin NEGATIVE NEGATIVE Urine Urobilinogen 0.2 < = 1.0 MG/DL Urine Leukocyte Esterase NEGATIVE NEGATIVE Urine RBC (Auto) TRACE-I NEGATIVE Urine RBC NONE /HPF Urine WBC 0-2 /HPF Urine Squamous Epithelial Cells RARE /HPF Urine Crystals NONE /LPF Urine Bacteria NEGATIVE /HPF Urine Casts NONE /LPF Urine Mucus SMALL H /LPF Urine Culture Indicated NO White Blood Count 9.2 4.3-11.0 10^3/uL Red Blood Count 4.91 4.35-5.85 10^6/uL Hemoglobin 14.3 13.3-17.7 G/DL Hematocrit 40 40-54 % Mean Corpuscular Volume 82 80-99 FL Mean Corpuscular Hemoglobin 29 25-34 PG Mean Corpuscular Hemoglobin Concent 36 32-36 G/DL Red Cell Distribution Width 12.3 10.0-14.5 % Platelet Count 254 130-400 10^3/uL Mean Platelet Volume 9.6 7.4-10.4 FL Neutrophils (%) (Auto) 56 42-75 % Lymphocytes (%) (Auto) 35 12-44 % Monocytes (%) (Auto) 7 0-12 % Eosinophils (%) (Auto) 2 0-10 % Basophils (%) (Auto) 0 0-10 % Neutrophils # (Auto) 5.2 1.8-7.8 X 10^3 Lymphocytes # (Auto) 3.2 1.0-4.0 X 10^3 Monocytes # (Auto) 0.7 0.0-1.0 X 10^3 Eosinophils # (Auto) 0.2 0.0-0.3 10^3/uL Basophils # (Auto) 0.0 0.0-0.1 10^3/uL Sodium Level 139 135-145 MMOL/L Potassium Level 3.8 3.6-5.0 MMOL/L Chloride Level 104 98-107 MMOL/L Carbon Dioxide Level 23 21-32 MMOL/L Anion Gap 12 5-14 MMOL/L Blood Urea Nitrogen 12 7-18 MG/DL Creatinine 1.03 0.60-1.30 MG/DL Estimat Glomerular Filtration Rate > 60 BUN/Creatinine Ratio 12 Glucose Level 119 H 70-105 MG/DL Calcium Level 9.1 8.5-10.1 MG/DL Corrected Calcium 8.9 8.5-10.1 MG/DL Total Bilirubin 0.3 0.1-1.0 MG/DL Aspartate Amino Transf (AST/SGOT) 47 H 5-34 U/L Alanine Aminotransferase (ALT/SGPT) 73 H 0-55 U/L Alkaline Phosphatase 96 40-136 U/L C-Reactive Protein High Sensitivity 1.26 H 0.00-0.50 MG/DL Total Protein 8.0 6.4-8.2 GM/DL Albumin 4.3 3.2-4.5 GM/DL My Orders Orders - PHOEBE POLO Ua Culture If Indicated (03/15/20 19:13) Cbc With Automated Diff (03/15/20 19:50) Comprehensive Metabolic Panel (03/15/20 19:50) Hs C Reactive Protein (03/15/20 19:50) Ct Abdomen/Pelvis W (03/15/20 19:50) Ed Iv/Invasive Line Start (03/15/20 19:50) Lactated Ringers (Lr 1000 Ml Iv Solution (03/15/20 19:50) Iohexol Injection (Omnipaque 350 Mg/Ml 1 (03/15/20 20:15) Received Contrast (Hold Metformin- Contr (03/15/20 20:15) Ns (Ivpb) (Sodium Chloride 0.9% Ivpb Bag (03/15/20 20:15) Medications Given in ED Current Medications Medications Dose Ordered Sig/Janice Route Start Time Stop Time Status Last Admin Dose Admin Iohexol 100 ml ONCE ONCE IV 03/15/20 20:15 03/15/20 20:16 DC 03/15/20 20:27 100 ML Sodium Chloride 100 ml ONCE ONCE IV 03/15/20 20:15 03/15/20 20:16 DC 03/15/20 20:27 80 ML Vital Signs/I&O 03/15/20 19:42 Temp 36.0 Pulse 91 Resp 18 B/P (MAP) 167/95 (119) O2 Delivery Room Air Progress Progress Note #1: Time: 20:08 Progress Note Suspect perhaps he has a seroma from the surgery. Plan to get some labs and CT if applicable. He declined anything for pain. Progress Note #2: Time: 21:24 [address] the [address] demonstrates some proximal mild ileitis. We put him on some probiotics and rifaximin for potential small intestinal bacterial overgrowth. Since This has been going on for over a month antibiotics are probably indicated. He was not able to provide us with a stool sample. We will encourage him to follow-up in the next 1-[address] Whiting or primary care. Diagnostic Imaging Diagonstic Imaging: CT Plain Films/CT/US/NM/MRI: abdomen, pelvis Comments NAME: CHETAN VILLALOBOS [facility] REC#: [id number] PT STATUS: REG ER : 1980 PHYSICIAN: PHOEBE POLO MD ADMIT DATE: 03/15/20/ER Signed Date of Exam:03/15/20 CT ABDOMEN/PELVIS W PROCEDURE: CT abdomen and pelvis with contrast. TECHNIQUE: Multiple contiguous axial images were obtained through the abdomen and pelvis after administration of intravenous contrast. Auto Exposure Controls were utilized during the CT exam to meet ALARA standards for radiation dose reduction. DATE: March 15, 2020. COMPARISON: KUB January 09, 2020. CT abdomen and pelvis January 09, 2020. INDICATION: 39-year-old male, lower abdominal pain. FINDINGS: The visualized portions of the lungs are clear. The heart is not enlarged. There is no identified pericardial effusion. There is diffuse fatty infiltration of the liver. The outer liver contours are not nodular. There is no identified liver lesion. The main, right and left portal veins are patent. The gallbladder is unremarkable. There is no biliary ductal dilation. The main pancreatic duct is not abnormally dilated. Unremarkable appearance of the pancreatic parenchyma. The spleen is normal in size. There is a small accessory splenule on axial image 19. The adrenal glands are unremarkable. Unremarkable appearance of the renal parenchyma. The urinary collecting systems are not distended. There is no identified renal or ureteral stone. The urinary bladder is unremarkable. The appendix is not well seen. There is mild dilation of the distal ileum up to approximately 2.1 cm in diameter without abnormal wall thickening. There is no identified site of abnormal wall thickening of the intestinal tract. There is no free intraperitoneal air. There is no drainable fluid collection. There is no free pelvic fluid. There is no identified abnormally enlarged lymph node in the abdomen or pelvis meeting CT size criteria for adenopathy. There are atherosclerotic calcifications noted. There is a benign L2 vertebral body hemangioma. There is no acute bony abnormality. IMPRESSION: CT abdomen and pelvis: 1. Diffuse fatty infiltration of the liver. 2. Very mild dilation of the distal ileum without abnormal wall thickening of bowel. This is of questionable significance. 3. No identified acute abnormality in the abdomen or pelvis. 4. There are mild atherosclerotic calcifications noted. Dictated by: Dictated on workstation # [id number] Dict: 03/15/202027 Trans: 03/15/202111 [facility] [id number] Interpreted by: NILESH KELLY MD Electronically signed by: NILESH KELLY MD 03/15/202111 Reviewed: Reviewed by Me Departure Impression Primary Impression: Ileitis Disposition: HOME, SELF-CARE Condition: Stable Departure-Patient Inst. Decision time for Depature: 21:23 Referrals: [facility] [place] (PCP/Family) Primary Care Physician Patient Instructions: [id number] Add. Discharge Instructions: You appear to have a infection of the small intestines. You do not need to stay in the hospital. Plan is since his been going on for a month to put you on some antibiotics as well as pickler helper a bottle of probiotics. Take one capsule of probiotics twice a day for the next 2-4 weeks. Take one tablet of rifaximin 3 times a day for the next 2 weeks. Plan to follow-up with either your primary care doctor or Dr. Whiting in the next 1-2 weeks. If you develop fevers, intractable vomiting or other worrisome symptoms then return to the nearest ER. Heating pads may be helpful for discomfort. Tylenol 1000 mg every 8 hours as necessary for pain. All discharge instructions reviewed with patient and/or family. Voiced understanding. Scripts L.acidoph & Paracasei,B.lactis (Probiotic) 1 Each Capsule 1 EACH PO BID for 30 Days, #60 CAP 0 Refills Prov: PHOEBE POLO 03/15/20 Rifaximin (Xifaxan) 550 Mg Tablet 550 MG PO TID for 14 Days, #42 TAB 0 Refills Prov: PHOEBE POLO 03/15/20 Work/School Note: Work Release Form Date Seen in the Emergency Department: Mar 15, 2020 Return to Work: Mar 16, 2020 Restrictions: No Restrictions Copy Copies To 1: ERICH WHITING MD, TITUS J Mar 15, 2020 19:56
[2020-03-15 19:59] LABS: BILIRUBIN,URINE NEGATIVE (NEGATIVE); CLARITY,URINE CLEAR; COLOR,URINE YELLOW; GLUCOSE, URINE (UA) TRACE (NEGATIVE); KETONES,URINE NEGATIVE (NEGATIVE); LEUKOCYTE ESTERASE ,URINE NEGATIVE (NEGATIVE); NITRITE,URINE NEGATIVE (NEGATIVE); PH,URINE 5.5 (5-9); PROTEIN,URINE TRACE (NEGATIVE)
[2020-03-15 20:10] LABS: BACTERIA,URINE NEGATIVE /HPF; SQUAMOUS EPITHELIAL CELL,UR RARE /HPF; WBC,URINE 0-2 /HPF
[2020-03-15 20:12] LABS: BASOPHILS % (AUTO) 0 % (0-10); EOSINOPHILS # (AUTO) 0.2 10^3/uL (0.0-0.3); EOSINOPHILS % (AUTO) 2 % (0-10); HEMATOCRIT 40 % (40-54); HEMOGLOBIN 14.3 G/DL (13.3-17.7); LYMPHOCYTES # (AUTO) 3.2 X 10^3 (1.0-4.0); LYMPHOCYTES % (AUTO) 35 % (12-44); MEAN CORPUSCULAR HEMOGLOBIN 29 PG (25-34); MEAN CORPUSCULAR HGB CONC 36 G/DL (32-36); MEAN CORPUSCULAR VOLUME 82 FL (80-99); MEAN PLATELET VOLUME 9.6 FL (7.4-10.4); MONOCYTES # (AUTO) 0.7 X 10^3 (0.0-1.0); MONOCYTES % (AUTO) 7 % (0-12); NEUTROPHILS # (AUTO) 5.2 X 10^3 (1.8-7.8); NEUTROPHILS % (AUTO) 56 % (42-75); PLATELET COUNT 254 10^3/uL (130-400); WHITE BLOOD COUNT 9.2 10^3/uL (4.3-11.0)
[2020-03-15] MEDS ORDERED: IOHEXOL 350 MG/ML 100 ML (OMNIPAQUE 350) VIAL IV ONE (20:15)
[2020-03-15] MEDS ORDERED: HOLD METFORMIN - RECEIVED CONTRAST 20 ML VIAL IV SCH (20:15)
[2020-03-15] MEDS ORDERED: NS 100 ML (IVPB) BAG IV ONE (20:15)
[2020-03-15 20:31] LABS: ALANINE AMINOTRANSFERASE 73 U/L (0-55); ALBUMIN 4.3 GM/DL (3.2-4.5); ALKALINE PHOSPHATASE 96 U/L (40-136); BILIRUBIN,TOTAL 0.3 MG/DL (0.1-1.0); BUN/CREATININE RATIO 12; CALCIUM 9.1 MG/DL (8.5-10.1); CARBON DIOXIDE 23 MMOL/L (21-32); CHLORIDE 104 MMOL/L (98-107); CREATININE SERUM 1.03 MG/DL (0.60-1.30); GFR ESTIMATED > 60; GLUCOSE 119 MG/DL (70-105); POTASSIUM 3.8 MMOL/L (3.6-5.0); SODIUM 139 MMOL/L (135-145)
--- NOTE | 2020-03-15 20:44 | Diagnostic Imaging Report ---
PROCEDURE: CT abdomen and pelvis with contrast. TECHNIQUE: Multiple contiguous axial images were obtained through the abdomen and pelvis after administration of intravenous contrast. Auto Exposure Controls were utilized during the CT exam to meet ALARA standards for radiation dose reduction. DATE: March 15, 2020. COMPARISON: KUB January 09, 2020. CT abdomen and pelvis January 09, 2020. INDICATION: 39-year-old male, lower abdominal pain. FINDINGS: The visualized portions of the lungs are clear. The heart is not enlarged. There is no identified pericardial effusion. There is diffuse fatty infiltration of the liver. The outer liver contours are not nodular. There is no identified liver lesion. The main, right and left portal veins are patent. The gallbladder is unremarkable. There is no biliary ductal dilation. The main pancreatic duct is not abnormally dilated. Unremarkable appearance of the pancreatic parenchyma. The spleen is normal in size. There is a small accessory splenule on axial image 19. The adrenal glands are unremarkable. Unremarkable appearance of the renal parenchyma. The urinary collecting systems are not distended. There is no identified renal or ureteral stone. The urinary bladder is unremarkable. The appendix is not well seen. There is mild dilation of the distal ileum up to approximately 2.1 cm in diameter without abnormal wall thickening. There is no identified site of abnormal wall thickening of the intestinal tract. There is no free intraperitoneal air. There is no drainable fluid collection. There is no free pelvic fluid. There is no identified abnormally enlarged lymph node in the abdomen or pelvis meeting CT size criteria for adenopathy. There are atherosclerotic calcifications noted. There is a benign L2 vertebral body hemangioma. There is no acute bony abnormality. IMPRESSION: CT abdomen and pelvis: 1. Diffuse fatty infiltration of the liver. 2. Very mild dilation of the distal ileum without abnormal wall thickening of bowel. This is of questionable significance. 3. No identified acute abnormality in the abdomen or pelvis. 4. There are mild atherosclerotic calcifications noted. Dictated by: Dictated on workstation # [id number]
[2020-03-15] MEDS ORDERED: L.AC1CAP6 PO (21:28)
[2020-03-15] MEDS ORDERED: RIFA550T PO (21:28)
[2020-03-15 21:36] VITALS: BP 163/93
== END 2020-03-15 21:39 | disposition home or self-care (01) ==
LOC: EDUNIT# 19:10 → ER 19:11
DX: K52.9 Noninfective gastroenteritis and colitis, unspecified (principal); K21.9 Gastro-esophageal reflux disease without esophagitis; Z88.5 Allergy status to narcotic agent
CPT/HCPCS: 36415; 74177; 80053; 81000; 85025; 86141

== ENCOUNTER → 2020-04-03 | Outpatient (CLI) | payer BC ==
[~2020-04-03] MED LIST changes: +L.AC1CAP6 PO; +RIFA550T PO
== END ==
LOC: LABNPT 14:24
DX: U07.1 COVID-19 (principal)
CPT/HCPCS: 87635

== ENCOUNTER 2020-05-07 06:53 | Outpatient (RCR) | payer BC ==
[~2020-05-07] VITALS: Ht 165.1 cm; Wt 87.5 kg
== END 2020-05-07 09:58 | disposition home or self-care (01) ==
LOC: PREOP 06:53
PROVIDERS: ATTEND Surgery
DX: Z01.818 Encounter for other preprocedural examination (principal)

== ENCOUNTER → 2020-05-09 | Outpatient (CLI) | payer BC | LOC: LAB FS 12:30 | PROVIDERS: ATTEND Nurse Practitioner Family | DX: Z01.812 Encounter for preprocedural laboratory examination (principal); R10.9 Unspecified abdominal pain; R19.7 Diarrhea, unspecified; Z20.828 Contact with and (suspected) exposure to other viral communicable diseases | CPT/HCPCS: 87635 ==

== ENCOUNTER 2020-05-14 09:41 | Day surgery (SDC) | payer BC, MEDICARE ==
[~2020-05-14] VITALS: Ht 165.1 cm; Wt 87.5 kg
[2020-05-14] VITALS (15 sets, daily range): BP systolic 98–145; BP diastolic 61–91
[2020-05-14] MEDS ORDERED: NS IV 500 ML 500 ML ONE (09:49)
[2020-05-14] MEDS ORDERED: NS IV 500 ML 500 ML IV PRN (10:04)
[2020-05-14] MEDS ORDERED: LIDOCAINE JELLY 2% 6 ML SYRINGE MM PRN (10:15)
[2020-05-14] MEDS ORDERED: fentaNYL INJECTION 100 MCG/2 ML AMP IVP ONE (10:15)
[2020-05-14] MEDS ORDERED: MIDAZOLAM 5 MG/5 ML (VERSED) VIAL IV ONE (10:15)
[2020-05-14] MEDS ORDERED: GUAI600T43 PO (10:16)
--- NOTE | 2020-05-14 10:42 | Conscious Sedation/ASA ---
Conscious Sedation Pre-Proced Time 10:30 ASA Score 2 For ASA 3 and 4: Consider anesthesia and medical clearance. Also, for patients with a history of failed moderate sedation consider anesthesia. Airway Lungs Heart ASA score ASA 1: a normal healthy patient ASA 2: a patient with a mild systemic disease (mid diabetes, controlled hypertension, obesity ASA 3: a patient with a severe systemic disease that limits activity (angina, COPD, prior Myocardial infarction) ASA 4: a patient with an incapacitating disease that is a constant threat to life (CHF, renal failure) ASA 5: a moribund patient not expected to survive 24 hrs. (ruptured aneurysm) ASA 6: a declared brain- patient whose organs are being harvested. For emergent operations, add the letter E after the classification Mallampati Classification Grade 2 Sedation Plan Analgesia, Amnesia, Plan communicated to team members, Discussed options with patient/fam, Discussed risks with patient/fam The patient is an appropriate candidate to undergo the planned procedure, sedation, and anesthesia. The patient immediately re-assessed prior to indication. ERICH ROBINS MD May 14, 2020 10:42
--- NOTE | 2020-05-14 10:43 | Progress Note-Pre Operative ---
Pre-Operative Progress Note H&P Reviewed The H&P was reviewed, patient examined and no changes noted. Date Seen by Provider: May 14, 2020 Time Seen by Provider: 10:30 Date H&P Reviewed: May 14, 2020 Time H&P Reviewed: 10:30 Pre-Operative Diagnosis: diarrhea, abdominal pain ERICH ROBINS MD May 14, 2020 10:42
--- NOTE | 2020-05-14 10:44 | Discharge Inst-Surgical ---
D/C Lap Instructions-SHIMON Follow Up Appt in 2 weeks Activity as tolerated High Fiber Diet 25g or more per day Avoid Alcohol, Caffeine, Spicy Palatine and Acid foods. Drink 64 fluid oz or more of fluids per day. Symptoms to Report: Fever over 101 degree F, Nausea/Vomiting If any problems/questions: Contact your physician or go to Emergency Room ERICH ROBINS MD May 14, 2020 10:44
[2020-05-14] MEDS ORDERED: ACETAMINOPHEN 325 MG TABLET PO PRN (10:45)
[2020-05-14] MEDS ORDERED: ONDANSETRON 4 MG/2 ML (SDV) Z0FRAN IVP PRN (10:45)
[2020-05-14] MEDS ORDERED: morphine INJ 10 MG/ML 1ML (SYR OR VIAL) IVP PRN ×2 (10:45)
[2020-05-14] MEDS ORDERED: LIDOCAINE JELLY 2% 6 ML SYRINGE ONE (11:23)
[2020-05-14] MEDS ORDERED: MIDAZOLAM 5 MG/5 ML (VERSED) VIAL ONE ×3 (11:23→12:07)
[2020-05-14] MEDS ORDERED: fentaNYL INJECTION 100 MCG/2 ML AMP ONE (11:24)
--- NOTE | 2020-05-14 12:31 | Progress Note-Post Operative ---
Post-Operative Progess Note Surgeon (s)/Manager Of Pmo (s) Surgeon ERICH ROBINS MD Manager Of Pmo: none Pre-Operative Diagnosis diarrhea, abdominal pain Post-Operative Diagnosis chronic stage 2 ext and int hemorrhoids, mild cecal inflammation. Procedure & Operative Findings Date of Procedure 05/14/20 Procedure Performed/Findings colonoscopy with bx. Anesthesia Type cs Estimated Blood Loss Estimated blood loss (mL): minimal Specimens/Packing Specimens Removed cecum ERICH ROBINS MD May 14, 2020 12:31
--- NOTE | 2020-05-14 19:55 | OPERATIVE REPORT ---
DATE OF SERVICE: 05/14/2020 ATTENDING CANCER REGISTRY MANAGER: Grzegorz Clements APRN PREOPERATIVE DIAGNOSES: Crampy abdominal pain, diarrhea. POSTOPERATIVE DIAGNOSES: Mild chronic stage II external and internal hemorrhoids, mild inflammation of the cecum. The terminal ileum could not be intubated. PROCEDURE: Colonoscopy with biopsy. SURGEON: Erich Robins MD. ANESTHESIA: Conscious sedation. ESTIMATED BLOOD LOSS: Minimal. FINDINGS: Mild chronic stage II external and internal hemorrhoids, mild inflammation of the cecum. The terminal ileum could not be intubated. DISPOSITION: The patient tolerated the procedure well. INDICATIONS: The patient is a 39-year-old male known to us. He had bilateral inguinal hernia pain and was seen in the Emergency Department where a CT scan was performed, which did show the hernias. On 01/17/2020, he underwent a laparoscopic bilateral inguinal hernia repair with mesh. He states that since that time, he has had issues with crampy abdominal pain and diarrhea and in 02/2020, was seen in the Emergency Department where he underwent a CT scan and was found to have mild dilatation of the distal ileum, which may have been consistent with terminal ileitis. He was started on Xifaxan. He continues to have issues with diarrhea as well as crampy abdominal pain. He does not report any red blood per rectum nor any dark tarry stools. He also does not recall any family history of inflammatory bowel disease. DESCRIPTION OF PROCEDURE: The patient was brought to the endoscopy suite, laid in the left lateral decubitus position. After adequate IV pain and sedative medications and conscious sedation anesthesia, a digital rectal examination was performed. Mild chronic stage II external and internal hemorrhoids were identified, which were not actively edematous nor inflamed and no bleeding. Normal sphincter tone was felt and there were no palpable masses. Prostate gland was palpable and appeared normal. The endoscope was then intubated and anus and rectum gently insufflated. The endoscope was then advanced to the remainder of the descending, transverse and ascending colon to the cecum. At the level of cecum, a mild colitis identified with easy friability of the mucosa. Several biopsies were taken with forceps with visualization of good hemostasis. We then proceeded to try to intubate the terminal ileum; however, multiple attempts were made unsuccessfully. The endoscope was then slowly withdrawn while taking a second look and suctioning of residual air with no additional findings. The patient tolerated the procedure well. It is unsure of the etiology of the inflammation; however, may be due to low level underlying inflammatory bowel disease. Due to his continued symptomatology, we will proceed with a trial of amino salicylic acid for six weeks to see if he this does help with his symptoms. If he does continue to have symptoms despite this, we will then refer him to gastroenterology. Job ID: [id number] DocumentID: [id number] Dictated Date: 05/14/2020 12:25:17 [place] Date: 05/14/2020 19:54:25 Dictated By: ERICH ROBINS MD
== END 2020-05-14 13:30 | disposition home or self-care (01) ==
LOC: ENDO 09:41
PROVIDERS: ATTEND Surgery
DX: K64.1 Second degree hemorrhoids (principal); R19.7 Diarrhea, unspecified; K40.20 Bilateral inguinal hernia, without obstruction or gangrene, not specified as recurrent; K21.9 Gastro-esophageal reflux disease without esophagitis; K50.00 Crohn's disease of small intestine without complications; Z79.899 Other long term (current) drug therapy; Z88.5 Allergy status to narcotic agent
CPT/HCPCS: 88305

== ENCOUNTER 2020-07-19 19:10 | Emergency (ER) | payer BC ==
[~2020-07-19] VITALS: Ht 165.1 cm; Wt 90.7 kg
[~2020-07-19 19:10] MED LIST changes: +GUAI600T43 PO
--- NOTE | 2020-07-19 19:29 | ED Abdominal Pain ---
General Stated Complaint: STOMACH/LOWER BACK PAIN Source of Information: Patient Exam Limitations: No Limitations History of Present Illness Date Seen by Provider: Jul 19, 2020 Time Seen by Provider: 19:28 Initial Comments To ER with nausea and vomiting that began couple hours ago. He has some bilateral flank pain that began around the same time. He has had some ongoing suprapubic pain for a couple of months. He has had a colonoscopy done by Dr. Whiting. Timing/Duration: Getting Worse, Intermittent Severity/Quality: Moderate Location: Suprapubic Radiation: No Radiation Activities at Onset: None Associated Symptoms: Nausea/Vomiting Allergies and Home Medications Allergies Coded Allergies: hydrocodone (Verified Adverse Reaction, Unknown, MIGRAIN, 06/27/19) oxycodone (Verified Adverse Reaction, Unknown, MAKES ME ANGRY, 01/11/20) Home Medications Cetirizine HCl 10 Mg Capsule, 10 MG PO DAILY, (Reported) Diphenhydramine HCl 25 Mg Capsule, 25 MG PO HS, (Reported) Esomeprazole Magnesium 40 Mg Cap, 40 MG PO DAILY, (Reported) Patient Home Medication List Home Medication List Reviewed: Yes Review of Systems Review of Systems Constitutional: see HPI EENTM: No Symptoms Reported Respiratory: No Symptoms Reported Cardiovascular: No Symptoms Reported Gastrointestinal: See HPI, Abdominal Pain Genitourinary: See HPI, Flank Pain Musculoskeletal: no symptoms reported Skin: no symptoms reported Psychiatric/Neurological: No Symptoms Reported Endocrine: No Symptoms Reported Past Ibwvtis-Qxtwxp-Spmhst Hx Patient Social History 2nd Hand Smoke Exposure: No Recent Hopitalizations: No Immunizations Up To Date Tetanus Booster (TDap): Unknown Date of Influenza Vaccine: Mar 27, 2020 Seasonal Allergies Seasonal Allergies: Yes Past Medical History Surgeries: Yes (BILAT INGUINAL HERNIA SX, circ) Respiratory: No Cardiac: No Neurological: No Reproductive Disorders: No Sexually Transmitted Disease: No Genitourinary: No Gastrointestinal: Yes (terminal ileitis) Gastroesophageal Reflux Musculoskeletal: No Endocrine: No HEENT: Yes (ALLERGIES) Cancer: No Psychosocial: No Integumentary: No Blood Disorders: No Family Medical History No Pertinent Family Hx Physical Exam Vital Signs Capillary Refill : Height/Weight/BMI Height: 5'5.00" Weight: 200lbs. oz. 90.593589yg; 32.10 BMI Method:Stated General Appearance: WD/WN, no apparent distress Respiratory: no respiratory distress, no accessory muscle use Cardiovascular: regular rate, rhythm, no murmur Gastrointestinal: normal bowel sounds, soft, tenderness Extremities: normal range of motion, non-tender Back: CVA tenderness (R), CVA tenderness (L) Neurologic/Psychiatric: alert, normal mood/affect, oriented x 3 Skin: normal color, warm/dry Progress/Results/Core Measures Results/Orders Lab Results Laboratory Tests Test 07/19/20 19:30 07/19/20 20:53 Range/Units White Blood Count 7.5 4.3-11.0 10^3/uL Red Blood Count 5.11 4.30-5.52 10^6/uL Hemoglobin 15.0 13.3-17.7 g/dL Hematocrit 44 40-54 % Mean Corpuscular Volume 85 80-99 fL Mean Corpuscular Hemoglobin 29 25-34 pg Mean Corpuscular Hemoglobin Concent 34 32-36 g/dL Red Cell Distribution Width 11.9 10.0-14.5 % Platelet Count 214 130-400 10^3/uL Mean Platelet Volume 9.4 9.0-12.2 fL Immature Granulocyte % (Auto) 0 % Neutrophils (%) (Auto) 60 42-75 % Lymphocytes (%) (Auto) 32 12-44 % Monocytes (%) (Auto) 5 0-12 % Eosinophils (%) (Auto) 2 0-10 % Basophils (%) (Auto) 1 0-10 % Neutrophils # (Auto) 4.5 1.8-7.8 10^3/uL Lymphocytes # (Auto) 2.4 1.0-4.0 10^3/uL Monocytes # (Auto) 0.4 0.0-1.0 10^3/uL Eosinophils # (Auto) 0.2 0.0-0.3 10^3/uL Basophils # (Auto) 0.0 0.0-0.1 10^3/uL Immature Granulocyte # (Auto) 0.0 0.0-0.1 10^3/uL Erythrocyte Sedimentation Rate 27 H 0-15 MM/HR Sodium Level 139 135-145 MMOL/L Potassium Level 3.9 3.6-5.0 MMOL/L Chloride Level 103 98-107 MMOL/L Carbon Dioxide Level 24 21-32 MMOL/L Anion Gap 12 5-14 MMOL/L Blood Urea Nitrogen 12 7-18 MG/DL Creatinine 1.07 0.60-1.30 MG/DL Estimat Glomerular Filtration Rate > 60 BUN/Creatinine Ratio 11 Glucose Level 182 H 70-105 MG/DL Calcium Level 9.1 8.5-10.1 MG/DL Corrected Calcium 8.9 8.5-10.1 MG/DL Total Bilirubin 0.6 0.1-1.0 MG/DL Aspartate Amino Transf (AST/SGOT) 48 H 5-34 U/L Alanine Aminotransferase (ALT/SGPT) 85 H 0-55 U/L Alkaline Phosphatase 80 40-136 U/L C-Reactive Protein High Sensitivity 1.57 H 0.00-0.50 MG/DL Total Protein 7.7 6.4-8.2 GM/DL Albumin 4.2 3.2-4.5 GM/DL Lipase 31 8-78 U/L Urine Color YELLOW Urine Clarity SL CLOUDY Urine pH 5.5 5-9 Urine Specific [place] <=1.005 1.016-1.022 Urine Protein NEGATIVE NEGATIVE Urine Glucose (UA) NEGATIVE NEGATIVE Urine Ketones NEGATIVE NEGATIVE Urine Nitrite NEGATIVE NEGATIVE Urine Bilirubin NEGATIVE NEGATIVE Urine Urobilinogen 0.2 < = 1.0 MG/DL Urine Leukocyte Esterase NEGATIVE NEGATIVE Urine RBC (Auto) 3+ H NEGATIVE Urine RBC >100 H /HPF Urine WBC NONE /HPF Urine Squamous Epithelial Cells 0-2 /HPF Urine Crystals NONE /LPF Urine Bacteria NEGATIVE /HPF Urine Casts NONE /LPF Urine Mucus NEGATIVE /LPF Urine Culture Indicated NO My Orders Orders - RAYNE GUTIERREZ APRN Cbc With Automated Diff (07/19/20 19:26) Comprehensive Metabolic Panel (07/19/20 19:26) Erythrocyte Sedimentation Rate (07/19/20 19:26) Hs C Reactive Protein (07/19/20 19:26) Ed Iv/Invasive Line Start (07/19/20 19:26) Lipase (07/19/20 19:26) Ct Abdomen/Pelvis W (07/19/20 19:26) Ns Iv 1000 Ml (Sodium Chloride 0.9%) (07/19/20 19:30) Ondansetron Injection (Zofran Injectio (07/19/20 19:30) Ketorolac Injection (Toradol Injection) (07/19/20 19:30) Medications Given in ED Current Medications Medications Dose Ordered Sig/Janice Route Start Time Stop Time Status Last Admin Dose Admin Iohexol 100 ml ONCE ONCE IV 07/19/20 20:15 07/19/20 20:16 DC 07/19/20 20:03 100 ML Ketorolac Tromethamine 15 mg ONCE ONCE IVP 07/19/20 19:30 07/19/20 19:31 DC 07/19/20 19:49 15 MG Ondansetron HCl 8 mg ONCE ONCE IVP 07/19/20 19:30 07/19/20 19:31 DC 07/19/20 19:49 8 MG Diagnostic Imaging Diagonstic Imaging: CT Comments NAME: CHETAN VILLALOBOS [facility] REC#: [id number] PT STATUS: REG ER : 1980 PHYSICIAN: RAYNE GUTIERREZ OPERATIONS SYSTEMS SPECIALIST ADMIT DATE: 07/19/20/ER Draft Date of Exam:07/19/20 CT ABDOMEN/PELVIS W PROCEDURE: CT abdomen and pelvis with contrast. TECHNIQUE: Multiple contiguous axial images were obtained through the abdomen and pelvis after administration of intravenous contrast. Auto Exposure Controls were utilized during the CT exam to meet ALARA standards for radiation dose reduction. All CT scans use one or more of the following dose optimizing techniques: automated exposure control, MA and/or KvP adjustment based on patient size and exam type or iterative reconstruction. INDICATION: Abdominal and pelvic pain. COMPARISON: Study of 03/15/2020. FINDINGS: There is mild low-density throughout the liver indicating steatosis. No focal hepatic, gallbladder, pancreatic, adrenal gland or significant splenic lesion is identified. Kidneys are also unremarkable with bilateral contrast excretion. There is no evidence of free fluid in the abdomen or pelvis. Partially opacified urinary bladder is unremarkable. No appendiceal region inflammation is identified. There is mild herniation of fat into the left inguinal canal. IMPRESSION: No definite acute abnormality is identified to account for patient's symptoms. Dictated on workstation # [id number] Dict: 07/19/202022 Trans: 07/19/202027 PJE [id number] Interpreted by: CEHN VARGAS MD Electronically signed by: Departure Impression Primary Impression: Hematuria Additional Impression: Suprapubic pain Disposition: HOME, SELF-CARE Condition: Stable Departure-Patient Inst. Decision time for Depature: 22:07 Referrals: [facility] [place] (PCP/Family) Primary Care Physician ABRAN MARTINEZ MD Patient Instructions: Blood in the Urine (Hematuria) in Adults Add. Discharge Instructions: 1. You have some blood in your urine. This may indicate that you have passed a stone recently which would contribute to the pain and the blood in the urine. H owever this warrants further evaluation and you need to follow-up with primary care or Dr. Quinn alvarez. Call Tuesday for an appointment to be seen. RAYNE GUTIERREZ APRN Jul 19, 2020 19:29
[2020-07-19] MEDS ORDERED: ONDANSETRON 4 MG/2 ML (SDV) Z0FRAN IVP ONE (19:30)
[2020-07-19] MEDS ORDERED: NS IV 1000 ML 1,000 ML IV SCH (19:30)
[2020-07-19] MEDS ORDERED: KETOROLAC 30 MG/ML VIAL IVP ONE (19:30)
[2020-07-19 19:39] LABS: BASOPHILS % (AUTO) 1 % (0-10); EOSINOPHILS # (AUTO) 0.2 10^3/uL (0.0-0.3); EOSINOPHILS % (AUTO) 2 % (0-10); HEMATOCRIT 44 % (40-54); LYMPHOCYTES # (AUTO) 2.4 10^3/uL (1.0-4.0); LYMPHOCYTES % (AUTO) 32 % (12-44); MEAN CORPUSCULAR HEMOGLOBIN 29 pg (25-34); MEAN CORPUSCULAR HGB CONC 34 g/dL (32-36); MEAN CORPUSCULAR VOLUME 85 fL (80-99); MEAN PLATELET VOLUME 9.4 fL (9.0-12.2); MONOCYTES # (AUTO) 0.4 10^3/uL (0.0-1.0); MONOCYTES % (AUTO) 5 % (0-12); NEUTROPHILS # (AUTO) 4.5 10^3/uL (1.8-7.8); NEUTROPHILS % (AUTO) 60 % (42-75); PLATELET COUNT 214 10^3/uL (130-400); WHITE BLOOD COUNT 7.5 10^3/uL (4.3-11.0)
[2020-07-19 19:58] LABS: ALANINE AMINOTRANSFERASE 85 U/L (0-55); ALBUMIN 4.2 GM/DL (3.2-4.5); ALKALINE PHOSPHATASE 80 U/L (40-136); BILIRUBIN,TOTAL 0.6 MG/DL (0.1-1.0); BUN/CREATININE RATIO 11; CALCIUM 9.1 MG/DL (8.5-10.1); CARBON DIOXIDE 24 MMOL/L (21-32); CHLORIDE 103 MMOL/L (98-107); CREATININE SERUM 1.07 MG/DL (0.60-1.30); GFR ESTIMATED > 60; GLUCOSE 182 MG/DL (70-105); LIPASE 31 U/L (8-78); POTASSIUM 3.9 MMOL/L (3.6-5.0); SODIUM 139 MMOL/L (135-145); TOTAL PROTEIN 7.7 GM/DL (6.4-8.2)
[2020-07-19 20:00] LABS: ERYTHROCYTE SEDIMENTATION RATE 27 MM/HR (0-15)
[2020-07-19] MEDS ORDERED: IOHEXOL 350 MG/ML 100 ML (OMNIPAQUE 350) VIAL IV ONE (20:15)
--- NOTE | 2020-07-19 20:28 | Diagnostic Imaging Report ---
PROCEDURE: CT abdomen and pelvis with contrast. TECHNIQUE: Multiple contiguous axial images were obtained through the abdomen and pelvis after administration of intravenous contrast. Auto Exposure Controls were utilized during the CT exam to meet ALARA standards for radiation dose reduction. All CT scans use one or more of the following dose optimizing techniques: automated exposure control, MA and/or KvP adjustment based on patient size and exam type or iterative reconstruction. INDICATION: Abdominal and pelvic pain. COMPARISON: Study of 03/15/2020. FINDINGS: There is mild low-density throughout the liver indicating steatosis. No focal hepatic, gallbladder, pancreatic, adrenal gland or significant splenic lesion is identified. Kidneys are also unremarkable with bilateral contrast excretion. There is no evidence of free fluid in the abdomen or pelvis. Partially opacified urinary bladder is unremarkable. No appendiceal region inflammation is identified. There is mild herniation of fat into the left inguinal canal. IMPRESSION: No definite acute abnormality is identified to account for patient's symptoms. Dictated by: Dictated on workstation # [id number]
[2020-07-19 21:04] LABS: BILIRUBIN,URINE NEGATIVE (NEGATIVE); CLARITY,URINE SL CLOUDY; COLOR,URINE YELLOW; GLUCOSE, URINE (UA) NEGATIVE (NEGATIVE); KETONES,URINE NEGATIVE (NEGATIVE); LEUKOCYTE ESTERASE ,URINE NEGATIVE (NEGATIVE); NITRITE,URINE NEGATIVE (NEGATIVE); PH,URINE 5.5 (5-9); PROTEIN,URINE NEGATIVE (NEGATIVE)
[2020-07-19 21:24] LABS: BACTERIA,URINE NEGATIVE /HPF; RBC,URINE >100 /HPF; SQUAMOUS EPITHELIAL CELL,UR 0-2 /HPF
[2020-07-20 02:33] VITALS: BP 126/81
== END 2020-07-19 22:25 | disposition home or self-care (01) ==
LOC: EDUNIT# 19:10 → ER 19:11
DX: R31.9 Hematuria, unspecified (principal); R10.30 Lower abdominal pain, unspecified; K21.9 Gastro-esophageal reflux disease without esophagitis; Z88.5 Allergy status to narcotic agent
CPT/HCPCS: 36415; 74177; 80053; 81000; 83690; 85025; 85652; 86141

== ENCOUNTER → 2020-08-15 | Outpatient (CLI) | payer BC ==
--- NOTE | 2020-08-15 09:26 | Diagnostic Imaging Report ---
PROCEDURE: US Gallbladder. TECHNIQUE: Multiple real-time grayscale images were obtained over the right upper quadrant in various projections. INDICATION: Vomiting. Liver is upper limits of normal in size at 18 cm. There is diffuse increased echogenicity throughout the liver consistent with hepatic steatosis. No discrete liver mass is detected. Portal vein is patent and shows normal direction of flow. The gallbladder is without stones or sludge. No wall thickening or biliary duct dilatation is seen. Visualized pancreas is unremarkable. Aorta is nonaneurysmal. IVC is patent. Right kidney is without calculi or hydronephrosis. There is no no ascites. IMPRESSION: 1. Hepatic steatosis. 2. No evidence of cholelithiasis or acute cholecystitis. Dictated by: Dictated on workstation # [id number]
== END ==
LOC: RAD 07:00
PROVIDERS: ATTEND Internal Medicine Gastroenterology
DX: K76.0 Fatty (change of) liver, not elsewhere classified (principal); R11.2 Nausea with vomiting, unspecified
CPT/HCPCS: 76705

== ENCOUNTER 2021-01-08 23:35 | Emergency (ER) | payer BC ==
[~2021-01-08] VITALS: Ht 165.1 cm; Wt 84.2 kg
[2021-01-09] MEDS ORDERED: AZIT500T PO (00:35)
--- NOTE | 2021-01-09 00:36 | ED Cough/URI ---
General Chief Complaint: Abdominal/GI Problems Stated Complaint: DIZZY,VOMITING,SWEATY,FEVER,COUGH Nursing Triage Note: Pt ambulated from waiting room to ED room 9 without difficulty. Pt reports that he started vomiting around 3 hours ago. Pt reports that he was seen by his primary care doctor for upper respiratory et sinus issues. Source: patient History of Present Illness Date Seen by Provider: Jan 08, 2021 Time Seen by Provider: 23:46 Initial Comments PT ARRIVES VIA POV FROM HOME STATES HE HAS BEEN SICK FOR THE LAST 3 DAYS C/O NASAL CONGESTION AND DRAINAGE--HAS ALLERGIES AND TAKES BENADRYL, ZYRTEC AND FLONASE DAILY C/O COUGH--STATES HE COUGHS, GAGS, AND "THROWS UP" MUCOUS + SWEATS AND CHILLS--HAS NOT CHECKED TEMP AT ANY TIME C/O SORE THROAT C/O BODY ACHES NO HEADACHE NO LOSS OF TASTE OR SMELL NO NAUSEA, BUT "VOMITS MUCOUS" DUE TO COUGHING AND GAGGING--THIS OCCURRED AT 2000 TONIGHT. NO DIARRHEA NO CHEST PAIN OR PAIN WITH BREATHING NO SHORTNESS OF BREATH SEEN AT [facility] TODAY FOR THIS. NO TESTS WERE DONE. WAS PRESCRIBED PREDNISONE AND WAS GIVEN A PREDNISONE SHOT. PT HAD COVID-19 IN MARCH 2020, AND THESE SYMPTOMS ARE THE SAME PT DID NOT REQUIRE ANY TREATMENT OR HOSPITALIZATION FOR THAT ILLNESS NO CHRONIC ILLNESSES OR RESPIRATORY PROBLEMS PT IS NON-SMOKER PCP: [facility] Allergies and Home Medications Allergies Coded Allergies: hydrocodone (Verified Adverse Reaction, Unknown, MIGRAIN, 06/27/19) oxycodone (Verified Adverse Reaction, Unknown, MAKES ME ANGRY, 01/11/20) Home Medications Azithromycin 500 Mg Tablet, 500 MG PO DAILY Prescribed by: SALOMÓN FERNANDEZ on 01/09/21 0035 Benzonatate 100 Mg Capsule, 200 MG PO TID Prescribed by: SALOMÓN FERNANDEZ on 01/09/21 0048 Cetirizine HCl 10 Mg Capsule, 10 MG PO DAILY, (Reported) Diphenhydramine HCl 25 Mg Capsule, 25 MG PO HS, (Reported) Esomeprazole Magnesium 40 Mg Cap, 40 MG PO DAILY, (Reported) Patient Home Medication List Home Medication List Reviewed: Yes Review of Systems Review of Systems Constitutional: see HPI, chills, diaphoresis, fever EENTM: see HPI, nose congestion, throat pain Respiratory: see HPI, cough, phlegm; No short of breath, No wheezing Cardiovascular: no symptoms reported; No chest pain, No edema, No palpitations Gastrointestinal: see HPI; No abdominal pain, No constipation, No diarrhea, No loss of appetite, No nausea Genitourinary: no symptoms reported Musculoskeletal: see HPI (BODY ACHES) Skin: no symptoms reported Psychiatric/Neurological: No Symptoms Reported; Denies Headache Hematologic/Lymphatic: No Symptoms Reported Immunological/Allergic: no symptoms reported Past Bujmxcc-Rcaggx-Jnohuw Hx Patient Social History Tobacco Use?: No Smoking Status: Never a Smoker Use of E-Cig and/or Vaping dev: No Substance use?: No Alcohol Use?: No Pt feels they are or have been: No Immunizations Up To Date Tetanus Booster (TDap): Unknown Influenza Vaccine Up-to-Date: No; Not Current Seasonal Allergies Seasonal Allergies: Yes Past Medical History Surgery/Hospitalization HX: HERNIA REPAIR Surgeries: Yes (BILAT INGUINAL HERNIA SX, circ) Respiratory: Yes (COVID-14 APRIL 2020-NO TREATMENT OR HOSPITALIZATION) Cardiac: No Neurological: No Reproductive Disorders: No Sexually Transmitted Disease: No Genitourinary: No Gastrointestinal: Yes (terminal ileitis) Gastroesophageal Reflux Musculoskeletal: No Endocrine: No HEENT: Yes (ALLERGIES; GLASSES) Cancer: No Psychosocial: No Integumentary: No Blood Disorders: No Family Medical History No Pertinent Family Hx Physical Exam Vital Signs - First Documented 01/08/21 23:50 Temp 36.5 Pulse 113 Resp 18 B/P (MAP) 153/102 (119) Pulse Ox 96 O2 Delivery Room Air Capillary Refill : Height: 5'5.00" Weight: 200lbs. oz. 90.866650ew; 30.00 BMI Method:Stated General Appearance: WD/WN, no apparent distress, other (SMILING, PLEASANT, TALKS NON-STOP AT LENGTH, DOES NOT APPEAR ILL OR TO BE IN ANY DISCOMFORT OR DISTRESS. NO COUGH NOTED) HEENT: PERRL/EOMI, TMs normal, pharynx normal, other (MILD NASAL CONGESTION AND CLEAR POST NASAL DRAINAGE. NO SINUS TENDERNESS. ) Neck: non-tender, full range of motion, supple, normal inspection Respiratory: normal breath sounds, no respiratory distress, no accessory muscle use Cardiovascular: no edema, no murmur, tachycardia Gastrointestinal: non tender, soft Extremities: normal inspection Neurologic/Psychiatric: supervisor electronic testing II-XII nml as tested, no motor/sensory deficits, alert, oriented x 3 Skin: normal color, warm/dry Progress/Results/Core Measures Suspected Sepsis SIRS Temperature: Pulse: 113 Respiratory Rate: 18 Blood Pressure 153 /102 Mean: 119 Results/Orders Lab Results Laboratory Tests Test 01/08/21 23:57 Range/Units Influenza Type A (RT-PCR) Not Detected Not Detecte Influenza Type B (RT-PCR) Not Detected Not Detecte SARS-CoV-2 RNA (RT-PCR) Not Detected Not Detecte My Orders Orders - SALOMÓN FERNANDEZ DO Covid 19 Inhouse Test (01/08/21 23:46) Influenza A And B By Pcr (01/08/21 23:46) Chest 1 View, Ap/Pa Only (01/09/21 00:01) Vital Signs/I&O 01/08/21 01/09/21 23:50 01:03 Temp 36.5 36.5 Pulse 113 113 Resp 18 18 B/P (MAP) 153/102 (119) 153/102 (119) Pulse Ox 96 96 O2 Delivery Room Air Capillary Refill : Blood Pressure Mean: 119 Progress Note : Progress Note PLACED IN ISOLATION ROOM PPE WORN AT ALL TIMES COVID-19 TESTING PERFORMED UNEVENTFUL ER STAY HEART RATE DOWN AT DISMISSAL NO COUGH AT ANY TIME NO DYSPNEA NO HYPOXIA NO FEVER NO VOMITING ADVISED PT THAT HE DOES HAVE SOME COVID-19 SYMPTOMS AND HE STATES THAT HE FEELS THE SAME WHEN HE HAD COVID-19 PREVIOUSLY, HE SHOULD QUARANTINE AND BE RE-TESTED IN A FEW DAYS Diagnostic Imaging Comments CXR--NO ACUTE PROCESS, PENDING RADIOLOGIST REVIEW Reviewed: Reviewed by Me Departure Impression Primary Impression: Person under investigation for COVID-19 Additional Impression: Upper respiratory infection Disposition: HOME, SELF-CARE Condition: Stable Departure-Patient Inst. Decision time for Depature: 00:37 Referrals: [facility] (PCP/Family) Primary Care Physician Patient Instructions: COVID-19 Overview, Upper Respiratory Infection ED Add. Discharge Instructions: CONTINUE YOUR CURRENT ALLERGY MEDICATIONS PRESCRIBED TAKE TYLENOL AND MOTRIN NEEDED FOR PAIN OR FEVER CHECK YOUR TEMPERATURE EVERY 4-6 HOURS LOTS OF CLEAR LIQUIDS FOLLOW UP WITH YOUR DR IN 3-4 DAYS IF NO BETTER--YOU MAY NEED TO BE RE-TESTED FOR COVID-19 IN A FEW DAYS IF YOU ARE STILL HAVING SYMPTOMS QUARANTINE FOR 2 WEEKS OR UNTIL YOU ARE CLEARED BY DRWyatt All discharge instructions reviewed with patient and/or family. Voiced understanding. Scripts Benzonatate (TESSALON PERLES) 100 Mg Capsule 200 MG PO TID, #40 CAP Prov: SALOMÓN FERNANDEZ DO 01/09/21 Azithromycin (Zithromax) 500 Mg Tablet 500 MG PO DAILY for 5 Days, #5 TAB Prov: SALOMÓN FERNANDEZ DO 01/09/21 Work/School Note: Work Release Form Date Seen in the Emergency Department: Jan 08, 2021 Return to Work: Jan 24, 2021 SALOMÓN FERNANDEZ DO Jan 09, 2021 00:36
[2021-01-09] MEDS ORDERED: BENZ100C18 PO (00:48)
[2021-01-09 01:03] VITALS: BP 153/102
--- NOTE | 2021-01-09 06:39 | Diagnostic Imaging Report ---
INDICATION: COUGH, FEVER. TECHNIQUE: Single view chest 12:29 AM. CORRELATION STUDY: None FINDINGS: The heart size, mediastinal configuration and pulmonary vascularity are within normal limits. The lungs are clear with no consolidating infiltrate. There is no significant effusion or pneumothorax. IMPRESSION: 1. Negative for acute abnormality of the chest. Dictated by: Dictated on workstation # [id number]
== END 2021-01-09 01:06 | disposition home or self-care (01) ==
LOC: EDUNIT# 23:35 → ER 23:39
DX: J06.9 Acute upper respiratory infection, unspecified (principal); K21.9 Gastro-esophageal reflux disease without esophagitis; Z20.822 Contact with and (suspected) exposure to COVID-19; Z79.899 Other long term (current) drug therapy
CPT/HCPCS: 71045; 87636

== ENCOUNTER 2021-03-30 14:29 | Emergency (ER) | payer BC ==
[~2021-03-30] VITALS: Ht 165.1 cm; Wt 86.1 kg
[~2021-03-30 14:29] MED LIST changes: +AZIT500T PO; +BENZ100C18 PO
--- NOTE | 2021-03-30 15:27 | ED Upper Extremity ---
General Chief Complaint: Upper Extremity Stated Complaint: SMASHED R RING FINGER Nursing Triage Note: Pt ambulatory into ER with complaint of smashed 4th finger on right hand. Pt states that it was smashed between [employer] Boat and large tool box. Pt has minimal bleeding to distal tip of finger. Tissue is showing from site. Pain at a 01/03. Source: patient Exam Limitations: no limitations History of Present Illness Date Seen by Provider: Mar 30, 2021 Time Seen by Provider: 14:51 Initial Comments This is a well appearing 40 yo male who presented to the ER for laceration on his right 4th finger after accidentally getting smashed between boat and large tool box. Bleeding controlled. Last tetanus unknown. Pain 01/03. No pre treatment [employer]. Allergies and Home Medications Allergies Coded Allergies: hydrocodone (Verified Adverse Reaction, Unknown, MIGRAIN, 06/27/19) oxycodone (Verified Adverse Reaction, Unknown, MAKES ME ANGRY, 01/11/20) Patient Home Medication List Home Medication List Reviewed: Yes Azithromycin (Zithromax) 500 Mg Tablet, 500 MG PO DAILY Prescribed by: SALOMÓN FERNANDEZ on 01/09/21 0035 Benzonatate (Tessalon Perles) 100 Mg Capsule, 200 MG PO TID Prescribed by: SALOMÓN FERNANDEZ on 01/09/21 0048 Cephalexin (Cephalexin) 500 Mg Tablet, 500 MG PO TID Prescribed by: BURT OSCAR on 03/30/21 1601 Cetirizine HCl (Zyrtec) 10 Mg Capsule, 10 MG PO DAILY, (Reported) Entered as Reported by: NARESH VELASCO on 09/18/15 0923 Diphenhydramine HCl (Benadryl) 25 Mg Capsule, 25 MG PO HS, (Reported) Entered as Reported by: NARESH VELASCO on 07/27/19 1800 Esomeprazole Magnesium (Nexium) 40 Mg Cap, 40 MG PO DAILY, (Reported) Entered as Reported by: NARESH VELASCO on 07/27/19 1800 Guaifenesin (Mucinex) Unknown Strength Tab.er.12h, Unknown Dose PO, (Reported) Entered as Reported by: DINORAH HILLMAN on 05/14/20 1016 Review of Systems Constitutional: no symptoms reported EENTM: no symptoms reported Respiratory: no symptoms reported Cardiovascular: no symptoms reported Musculoskeletal: see HPI Skin: see HPI Psychiatric/Neurological: No Symptoms Reported Past Jclitnd-Tzafxz-Ooklii Hx Patient Social History Tobacco Use?: No Use of E-Cig and/or Vaping dev: No Substance use?: No Alcohol Use?: No Pt feels they are or have been: No Immunizations Up To Date Tetanus Booster (TDap): Unknown Influenza Vaccine Up-to-Date: No; Not Current Seasonal Allergies Seasonal Allergies: Yes Past Medical History Surgery/Hospitalization HX: HERNIA REPAIR Surgeries: Yes (BILAT INGUINAL HERNIA SX, circ) Respiratory: Yes (COVID-14 APRIL 2020-NO TREATMENT OR HOSPITALIZATION) Cardiac: No Neurological: No Reproductive Disorders: No Sexually Transmitted Disease: No Genitourinary: No Gastrointestinal: Yes (terminal ileitis) Gastroesophageal Reflux Musculoskeletal: No Endocrine: No HEENT: Yes (ALLERGIES; GLASSES) Cancer: No Psychosocial: No Integumentary: No Blood Disorders: No Family Medical History No Pertinent Family Hx Physical Exam Vital Signs Vital Signs - First Documented 03/30/21 14:36 Temp 36.7 Pulse 104 Resp 20 B/P (MAP) 143/94 (110) Pulse Ox 97 O2 Delivery Room Air Capillary Refill : Less Than 3 Seconds Height, Weight, BMI Height: 5'5.00" Weight: 200lbs. oz. 90.558978al; 31.00 BMI Method:Stated General Appearance: WD/WN, no apparent distress Cardiovascular: regular rate, rhythm, no murmur Respiratory: lungs clear, normal breath sounds Shoulder: normal inspection, non-tender, no evidence of injury Elbow/Forearm: normal inspection, non-tender, no evidence of injury Wrist: Yes normal inspection, Yes non-tender, Yes no evidence of injury Hand: Right (4th index finger bruising, volar aspect of distal phalanx. Small laceration with dried blood. ), ecchymosis, laceration Neurologic/Tendon: normal sensation, normal motor functions, normal tendon functions Neurologic/Psychiatric: alert, normal mood/affect, oriented x 3 Skin: normal color, warm/dry Progress/Results/Core Measures Results/Orders My Orders Orders - BURT OSCAR APRN Finger(S) (03/30/21 14:50) Tetanus/Diphtheria Inj (Adult) (Tenivac (03/30/21 15:45) Dipht,Pertuss(Acell),Tet Adult (Boostrix (03/30/21 15:45) Vital Signs/I&O Blood Pressure Mean: 110 Progress Progress Note : Progress Note Patient examined and in no acute distress. Small amount of subcutaneous tissue protruding from laceration site. Digital block to right 4th finger with Bupivicaine 0.5%. Cleansed area with Betadine prep and anesthetized with 4cc Bupivicaine. Tolerated well. Images show distal tuft fracture. Laceration 4mm in length. Cleansed with saline and applied dermabond. Placed in baseball finger splint. Discharge POC reviewed and he is agreeable with plan. Tetanus updated prior to discharge. Diagnostic Imaging Diagonstic Imaging: Xray Plain Films/CT/US/NM/MRI: other Comments [facility], [place] NAME: CHETAN VILLALOBOS [facility] REC#: [id number] PT STATUS: REG ER : 1980 PHYSICIAN: BURT OSCAR APRN ADMIT DATE: 03/30/21/ER Signed Date of Exam:03/30/21 FINGER(S) CLINICAL HISTORY: Smash injury to the right fourth digit. COMPARISON: None. TECHNIQUE: Three views of the right hand. FINDINGS: Acute fracture is seen involving the distal aspect of the distal right fourth phalanx. Associated soft tissue edema is present. Alignment of the right fourth digit is anatomic. The remainder of the hand is unremarkable without acute fracture. IMPRESSION: 1. Tuft fracture involving the distal aspect of the distal right fourth phalanx. Dictated by: Dictated on workstation # [id number] Dict: 03/30/21 1544 Trans: 03/30/21 1554 [id number] Interpreted by: ISH TAYLOR DO Electronically signed by: ISH TAYLOR DO 03/30/21 1554 Reviewed: Reviewed by Me Departure Impression Primary Impression: Finger laceration Additional Impression: Open fracture of tuft of distal phalanx of finger Disposition: 01 HOME, SELF-CARE Condition: Improved Departure-Patient Inst. Decision time for Depature: 15:38 Referrals: [facility]/NATHALIE (PCP) Primary Care Physician NANDINI OLGUIN APRN (Family) Primary Care Physician Patient Instructions: Laceration Repair With Glue (DC) Add. Discharge Instructions: Plan: 1. Monitor for signs of infection: increasing redness, swelling, drainage, pain. Follow up with your doctor or return if symptoms develop. 2. Keep your hand elevated above your heart as much as possible for the next 72 hours as this is when the most swelling occurs. 3. Keep area clean and dry. Do not soak. Allow glue to fall off naturally. Do not pick or pull. 4. Return for any new, concerning, or worsening symptoms. 5. Your tetanus was updated today. All discharge instructions reviewed with patient and/or family. Voiced understanding. Scripts Cephalexin (Cephalexin) 500 Mg Tablet 500 MG PO TID for 5 Days, #15 TAB 0 Refills Prov: BURT OSCAR APRN 03/30/21 BURT OSCAR APRN Mar 30, 2021 15:27
[2021-03-30] MEDS ORDERED: TETANUS & DIPHTHERIA TOX,ADULT 0.5 ML (TENIVAC) IM ONE (15:45)
[2021-03-30] MEDS ORDERED: TETANUS,DIPTH,PERTUSS P/F (BOOSTRIX) 0.5 ML VIAL IM ONE (15:45)
--- NOTE | 2021-03-30 15:50 | Diagnostic Imaging Report ---
CLINICAL HISTORY: Smash injury to the right fourth digit. COMPARISON: None. TECHNIQUE: Three views of the right hand. FINDINGS: Acute fracture is seen involving the distal aspect of the distal right fourth phalanx. Associated soft tissue edema is present. Alignment of the right fourth digit is anatomic. The remainder of the hand is unremarkable without acute fracture. IMPRESSION: 1. Tuft fracture involving the distal aspect of the distal right fourth phalanx. Dictated by: Dictated on workstation # [id number]
[2021-03-30] MEDS ORDERED: CEPH500T PO (16:01)
[2021-03-30 16:10] VITALS: BP 145/92
== END 2021-03-30 16:10 | disposition home or self-care (01) ==
LOC: EDUNIT# 14:29 → ER 14:31
DX: S62.634B Displaced fracture of distal phalanx of right ring finger, initial encounter for open fracture (principal); K21.9 Gastro-esophageal reflux disease without esophagitis; Z23 Encounter for immunization; Z79.899 Other long term (current) drug therapy; W23.1XXA Caught, crushed, jammed, or pinched between stationary objects, initial encounter
CPT/HCPCS: 73140; 90715

== ENCOUNTER 2021-04-17 15:35 | Emergency (ER) | payer BC ==
[~2021-04-17] VITALS: Ht 165 cm; Wt 84.0 kg
[~2021-04-17 15:35] MED LIST changes: +CEPH500T PO
--- NOTE | 2021-04-17 17:27 | ED Abdominal Pain ---
General Stated Complaint: N/V/D /ABD PAIN Source of Information: Patient Exam Limitations: No Limitations History of Present Illness Date Seen by Provider: Apr 17, 2021 Time Seen by Provider: 17:26 Initial Comments to ER with nausea vomiting abdominal pain. Several episodes of mucousy diarrhea. Vomiting x1. Diffuse abdominal cramping no fever. This began at 3:30 in the morning. His entire family ate spaghetti for dinner and no one else is sick. Timing/Duration: 1-2 Days Severity/Quality: Moderate Location: Generalized Abdomen Radiation: No Radiation Activities at Onset: None Associated Symptoms: Nausea/Vomiting Allergies and Home Medications Allergies Coded Allergies: hydrocodone (Verified Adverse Reaction, Unknown, MIGRAIN, 06/27/19) oxycodone (Verified Adverse Reaction, Unknown, MAKES ME ANGRY, 01/11/20) Patient Home Medication List Home Medication List Reviewed: Yes Azithromycin (Zithromax) 500 Mg Tablet, 500 MG PO DAILY Prescribed by: SALOMÓN FERNANDEZ on 01/09/21 0035 Benzonatate (Tessalon Perles) 100 Mg Capsule, 200 MG PO TID Prescribed by: SALOMÓN FERNANDEZ on 01/09/21 0048 Cephalexin (Cephalexin) 500 Mg Tablet, 500 MG PO TID Prescribed by: BURT OSCAR on 03/30/21 1601 Cetirizine HCl (Zyrtec) 10 Mg Capsule, 10 MG PO DAILY, (Reported) Entered as Reported by: NARESH VELASCO on 09/18/15 0923 Diphenhydramine HCl (Benadryl) 25 Mg Capsule, 25 MG PO HS, (Reported) Entered as Reported by: NARESH VELASCO on 07/27/19 1800 Esomeprazole Magnesium (Nexium) 40 Mg Cap, 40 MG PO DAILY, (Reported) Entered as Reported by: NARESH VELASCO on 07/27/19 1800 Guaifenesin (Mucinex) Unknown Strength Tab.er.12h, Unknown Dose PO, (Reported) Entered as Reported by: DINORAH HILLMAN on 05/14/20 1016 Review of Systems Review of Systems Constitutional: see HPI EENTM: No Symptoms Reported Respiratory: No Symptoms Reported Cardiovascular: See HPI Gastrointestinal: See HPI, Abdominal Pain Genitourinary: No Symptoms Reported Musculoskeletal: no symptoms reported Skin: no symptoms reported Psychiatric/Neurological: No Symptoms Reported Endocrine: No Symptoms Reported Hematologic/Lymphatic: No Symptoms Reported Past Iyixuab-Qlshuy-Zrvhru Hx Immunizations Up To Date Tetanus Booster (TDap): Unknown Seasonal Allergies Seasonal Allergies: Yes Past Medical History Surgery/Hospitalization HX: HERNIA REPAIR Surgeries: Yes (BILAT INGUINAL HERNIA SX, circ) Respiratory: Yes (COVID-14 APRIL 2020-NO TREATMENT OR HOSPITALIZATION) Cardiac: No Neurological: No Reproductive Disorders: No Sexually Transmitted Disease: No Genitourinary: No Gastrointestinal: Yes (terminal ileitis) Gastroesophageal Reflux Musculoskeletal: No Endocrine: No HEENT: Yes (ALLERGIES; GLASSES) Cancer: No Psychosocial: No Integumentary: No Blood Disorders: No Family Medical History No Pertinent Family Hx Physical Exam Vital Signs Vital Signs - First Documented 04/17/21 17:41 Temp 36.4 Pulse 107 Resp 18 B/P (MAP) 126/94 Pulse Ox 98 O2 Delivery Room Air Capillary Refill : Height/Weight/BMI Height: 5'5.00" Weight: 200lbs. oz. 90.789006ez; 31.00 BMI Method:Stated General Appearance: WD/WN, no apparent distress HEENT: PERRL/EOMI, normal ENT inspection Respiratory: no respiratory distress, no accessory muscle use Gastrointestinal: normal bowel sounds, non tender, soft Extremities: normal range of motion, non-tender Neurologic/Psychiatric: alert, normal mood/affect, oriented x 3 Skin: normal color, warm/dry Progress/Results/Core Measures Results/Orders Lab Results Laboratory Tests Test 04/17/21 17:27 04/17/21 18:02 Range/Units White Blood Count 13.4 H 4.3-11.0 10^3/uL Red Blood Count 5.77 H 4.30-5.52 10^6/uL Hemoglobin 17.0 13.3-17.7 g/dL Hematocrit 50 40-54 % Mean Corpuscular Volume 87 80-99 fL Mean Corpuscular Hemoglobin 30 25-34 pg Mean Corpuscular Hemoglobin Concent 34 32-36 g/dL Red Cell Distribution Width 12.0 10.0-14.5 % Platelet Count 261 130-400 10^3/uL Mean Platelet Volume 9.7 9.0-12.2 fL Immature Granulocyte % (Auto) 0 % Neutrophils (%) (Auto) 82 H 42-75 % Lymphocytes (%) (Auto) 10 L 12-44 % Monocytes (%) (Auto) 5 0-12 % Eosinophils (%) (Auto) 2 0-10 % Basophils (%) (Auto) 0 0-10 % Neutrophils # (Auto) 10.9 H 1.8-7.8 10^3/uL Lymphocytes # (Auto) 1.4 1.0-4.0 10^3/uL Monocytes # (Auto) 0.7 0.0-1.0 10^3/uL Eosinophils # (Auto) 0.3 0.0-0.3 10^3/uL Basophils # (Auto) 0.1 0.0-0.1 10^3/uL Immature Granulocyte # (Auto) 0.0 0.0-0.1 10^3/uL Sodium Level 138 135-145 MMOL/L Potassium Level 4.1 3.6-5.0 MMOL/L Chloride Level 102 98-107 MMOL/L Carbon Dioxide Level 23 21-32 MMOL/L Anion Gap 13 5-14 MMOL/L Blood Urea Nitrogen 13 7-18 MG/DL Creatinine 1.20 0.60-1.30 MG/DL Estimat Glomerular Filtration Rate 67 BUN/Creatinine Ratio 11 Glucose Level 174 H 70-105 MG/DL Calcium Level 10.3 H 8.5-10.1 MG/DL Corrected Calcium 8.5-10.1 MG/DL Total Bilirubin 0.8 0.1-1.0 MG/DL Aspartate Amino Transf (AST/SGOT) 34 5-34 U/L Alanine Aminotransferase (ALT/SGPT) 61 H 0-55 U/L Alkaline Phosphatase 111 40-136 U/L C-Reactive Protein High Sensitivity 1.95 H 0.00-0.50 MG/DL Total Protein 8.6 H 6.4-8.2 GM/DL Albumin 4.6 H 3.2-4.5 GM/DL Lipase 36 8-78 U/L Urine Color YELLOW Urine Clarity CLEAR Urine pH 6.0 5-9 Urine Specific [place] >=1.030 1.016-1.022 Urine Protein 1+ H NEGATIVE Urine Glucose (UA) NEGATIVE NEGATIVE Urine Ketones TRACE H NEGATIVE Urine Nitrite NEGATIVE NEGATIVE Urine Bilirubin 2+ H NEGATIVE Urine Urobilinogen 0.2 < = 1.0 MG/DL Urine Leukocyte Esterase NEGATIVE NEGATIVE Urine RBC (Auto) NEGATIVE NEGATIVE Urine RBC NONE /HPF Urine WBC 0-2 /HPF Urine Crystals NONE /LPF Urine Bacteria TRACE /HPF Urine Casts PRESENT /LPF Urine Hyaline Casts 10-25 H /LPF Urine Mucus MODERATE H /LPF Urine Culture Indicated NO My Orders Orders - RAYNE GUTIERREZ APRN Cbc With Automated Diff (04/17/21 17:23) Hs C Reactive Protein (04/17/21 17:23) Comprehensive Metabolic Panel (04/17/21 17:23) Ua Culture If Indicated (04/17/21 17:23) Ed Iv/Invasive Line Start (04/17/21 17:23) Lipase (04/17/21 17:23) Lactated Ringers (Lr 1000 Ml Iv Solution (04/17/21 17:30) Hyoscyamine Sl Tablet (Levsin Sl Tablet) (04/17/21 17:30) Ondansetron Injection (Zofran Injectio (04/17/21 17:30) Ct Abdomen/Pelvis W (04/17/21 17:42) Iohexol Injection (Omnipaque 350 Mg/Ml 1 (04/17/21 18:15) Received Contrast (Hold Metformin- Contr (04/17/21 18:15) Ns (Ivpb) (Sodium Chloride 0.9% Ivpb Bag (04/17/21 18:15) Medications Given in ED Current Medications Medications Dose Ordered Sig/Janice Route Start Time Stop Time Status Last Admin Dose Admin Hyoscyamine Sulfate 0.125 mg ONCE ONCE PO 04/17/21 17:30 04/17/21 17:31 DC 04/17/21 17:38 0.125 MG Iohexol 100 ml ONCE ONCE IV 04/17/21 18:15 04/17/21 18:17 DC 04/17/21 18:12 100 ML Ondansetron HCl 8 mg ONCE ONCE IVP 04/17/21 17:30 04/17/21 17:31 DC 04/17/21 17:38 8 MG Sodium Chloride 100 ml ONCE ONCE IV 04/17/21 18:15 04/17/21 18:17 DC 04/17/21 18:12 80 ML Vital Signs/I&O 04/17/21 04/17/21 17:41 17:42 Temp 36.4 36.4 Pulse 107 107 Resp 18 18 B/P (MAP) 126/94 126/94 (105) Pulse Ox 98 98 O2 Delivery Room Air Room Air Departure Communication (Admissions) NAME: CHETAN VILLALOBOS [facility] REC#: [id number] PT STATUS: REG ER : 1980 PHYSICIAN: RAYNE GUTIERREZ APRN ADMIT DATE: 04/17/21/ER Signed Date of Exam:04/17/21 CT ABDOMEN/PELVIS W EXAMINATION: CT abdomen and pelvis with intravenous contrast. TECHNIQUE: Multiple contiguous axial images were obtained through the abdomen and pelvis after the uneventful administration of intravenous contrast. All CT scans use one or more of the following dose optimizing techniques: automated exposure control, MA and/or KvP adjustment based on patient size and exam type or iterative reconstruction. HISTORY: Diffuse abdominal pain. Cramping. COMPARISON: 07/19/2020. FINDINGS: The heart is unremarkable. The included lung bases are clear. There is hepatic steatosis. No focal hepatic lesion is seen. The portal vein is patent. The gallbladder is unremarkable. The spleen, pancreas, adrenal glands and kidneys have a normal appearance. There is no pathologically enlarged mesenteric or retroperitoneal adenopathy. Nondilated fluid-filled loops of large and small bowel are seen throughout the abdomen and pelvis. There is no free fluid or free air. No acute osseous abnormality. Ureters and bladder are grossly normal. There is no free air, loculated collection or adenopathy in the pelvis. IMPRESSION: Fluid-filled nondilated loops of large and small bowel throughout the abdomen and pelvis, favored to represent enteritis/colitis. No bowel obstruction. No free fluid or free air. Dictated by: Dictated on workstation # [id number] Dict: 04/17/211820 Trans: 04/17/211828 [facility] [id number] Interpreted by: ISH TAYLOR DO Electronically signed by: ISH TAYLOR DO 04/17/211828 Impression Primary Impression: Dehydration Additional Impression: Enterocolitis Disposition: 01 HOME, SELF-CARE Condition: Stable Departure-Patient Inst. Decision time for Depature: 18:32 Referrals: [facility]/NATHALIE (PCP) Primary Care Physician NANDINI OLGUIN APRN (Family) Primary Care Physician Patient Instructions: [id number] Add. Discharge Instructions: 1. Drink plenty of fluids. Nausea medication as needed. Imodium [id number] as needed. Return to ER for any concerns such as bloody stools, high fever, uncontrollable vomiting or severe pain and follow-up with your doctor next week for recheck. Scripts Ondansetron (Ondansetron Odt) 8 Mg Tab.rapdis 8 MG PO Q6H PRN for NAUSEA/VOMITING, #10 TAB Prov: RAYNE GUTIERREZ APRN 04/17/21 Work/School Note: Work Release Form Date Seen in the Emergency Department: Apr 17, 2021 Return to Work: Apr 19, 2021 RAYNE GUTIERREZ APRN Apr 17, 2021 17:26
[2021-04-17] MEDS ORDERED: ONDANSETRON 4 MG/2 ML (SDV) Z0FRAN IVP ONE (17:30)
[2021-04-17] MEDS ORDERED: HYOSCYAMINE 0.125 MG (LEVSIN) TAB PO ONE (17:30)
[2021-04-17] MEDS ORDERED: LACTATED RINGERS 1,000 ML IV SCH (17:30)
[2021-04-17 17:36] LABS: BASOPHILS # (AUTO) 0.1 10^3/uL (0.0-0.1); BASOPHILS % (AUTO) 0 % (0-10); EOSINOPHILS # (AUTO) 0.3 10^3/uL (0.0-0.3); EOSINOPHILS % (AUTO) 2 % (0-10); HEMATOCRIT 50 % (40-54); LYMPHOCYTES # (AUTO) 1.4 10^3/uL (1.0-4.0); LYMPHOCYTES % (AUTO) 10 % (12-44); MEAN CORPUSCULAR HEMOGLOBIN 30 pg (25-34); MEAN CORPUSCULAR HGB CONC 34 g/dL (32-36); MEAN CORPUSCULAR VOLUME 87 fL (80-99); MEAN PLATELET VOLUME 9.7 fL (9.0-12.2); MONOCYTES # (AUTO) 0.7 10^3/uL (0.0-1.0); MONOCYTES % (AUTO) 5 % (0-12); NEUTROPHILS # (AUTO) 10.9 10^3/uL (1.8-7.8); NEUTROPHILS % (AUTO) 82 % (42-75); PLATELET COUNT 261 10^3/uL (130-400); WHITE BLOOD COUNT 13.4 10^3/uL (4.3-11.0)
[2021-04-17 17:56] LABS: ALBUMIN 4.6 GM/DL (3.2-4.5); CHLORIDE 102 MMOL/L (98-107); POTASSIUM 4.1 MMOL/L (3.6-5.0); SODIUM 138 MMOL/L (135-145)
[2021-04-17 17:58] LABS: CALCIUM 10.3 MG/DL (8.5-10.1)
[2021-04-17 17:59] LABS: GLUCOSE 174 MG/DL (70-105); TOTAL PROTEIN 8.6 GM/DL (6.4-8.2)
[2021-04-17 18:00] LABS: CARBON DIOXIDE 23 MMOL/L (21-32)
[2021-04-17 18:01] LABS: BILIRUBIN,TOTAL 0.8 MG/DL (0.1-1.0)
[2021-04-17 18:02] LABS: ALKALINE PHOSPHATASE 111 U/L (40-136)
[2021-04-17 18:03] LABS: GFR ESTIMATED 67
[2021-04-17 18:04] LABS: BUN/CREATININE RATIO 11
[2021-04-17 18:06] LABS: ALANINE AMINOTRANSFERASE 61 U/L (0-55); LIPASE 36 U/L (8-78)
[2021-04-17 18:07] LABS: CLARITY,URINE CLEAR; COLOR,URINE YELLOW; GLUCOSE, URINE (UA) NEGATIVE (NEGATIVE); KETONES,URINE TRACE (NEGATIVE); LEUKOCYTE ESTERASE ,URINE NEGATIVE (NEGATIVE); NITRITE,URINE NEGATIVE (NEGATIVE); PROTEIN,URINE 1+ (NEGATIVE)
[2021-04-17] MEDS ORDERED: NS 100 ML (IVPB) BAG IV ONE (18:15)
[2021-04-17] MEDS ORDERED: IOHEXOL 350 MG/ML 100 ML (OMNIPAQUE 350) VIAL IV ONE (18:15)
[2021-04-17] MEDS ORDERED: HOLD METFORMIN - RECEIVED CONTRAST 20 ML VIAL IV SCH (18:15)
[2021-04-17 18:17] LABS: BACTERIA,URINE TRACE /HPF; BILIRUBIN,URINE 2+ (NEGATIVE); WBC,URINE 0-2 /HPF
--- NOTE | 2021-04-17 18:29 | Diagnostic Imaging Report ---
EXAMINATION: CT abdomen and pelvis with intravenous contrast. TECHNIQUE: Multiple contiguous axial images were obtained through the abdomen and pelvis after the uneventful administration of intravenous contrast. All CT scans use one or more of the following dose optimizing techniques: automated exposure control, MA and/or KvP adjustment based on patient size and exam type or iterative reconstruction. HISTORY: Diffuse abdominal pain. Cramping. COMPARISON: 07/19/2020. FINDINGS: The heart is unremarkable. The included lung bases are clear. There is hepatic steatosis. No focal hepatic lesion is seen. The portal vein is patent. The gallbladder is unremarkable. The spleen, pancreas, adrenal glands and kidneys have a normal appearance. There is no pathologically enlarged mesenteric or retroperitoneal adenopathy. Nondilated fluid-filled loops of large and small bowel are seen throughout the abdomen and pelvis. There is no free fluid or free air. No acute osseous abnormality. Ureters and bladder are grossly normal. There is no free air, loculated collection or adenopathy in the pelvis. IMPRESSION: Fluid-filled nondilated loops of large and small bowel throughout the abdomen and pelvis, favored to represent enteritis/colitis. No bowel obstruction. No free fluid or free air. Dictated by: Dictated on workstation # [id number]
[2021-04-17] MEDS ORDERED: ONDA8TAB13 PO (18:34)
[2021-04-17 18:54] VITALS: BP 129/80
== END 2021-04-17 19:06 | disposition home or self-care (01) ==
LOC: EDUNIT# 15:35 → ER 15:36
DX: E86.0 Dehydration (principal); K52.9 Noninfective gastroenteritis and colitis, unspecified; K21.9 Gastro-esophageal reflux disease without esophagitis; Z79.899 Other long term (current) drug therapy
CPT/HCPCS: 36415; 74177; 80053; 81000; 83690; 85025; 86141

== ENCOUNTER 2021-04-26 06:46 | Emergency (ER) | payer BC ==
[~2021-04-26] VITALS: Ht 165 cm; Wt 86.3 kg
[~2021-04-26 06:46] MED LIST changes: +ONDA8TAB13 PO
[2021-04-26] MEDS ORDERED: NS IV 1000 ML 1,000 ML IV STA (07:02)
[2021-04-26] MEDS ORDERED: KETOROLAC 30 MG/ML VIAL IVP STA (07:02)
[2021-04-26 07:10] LABS: BILIRUBIN,URINE NEGATIVE (NEGATIVE); CLARITY,URINE CLEAR; COLOR,URINE YELLOW; GLUCOSE, URINE (UA) NEGATIVE (NEGATIVE); KETONES,URINE NEGATIVE (NEGATIVE); LEUKOCYTE ESTERASE ,URINE NEGATIVE (NEGATIVE); NITRITE,URINE NEGATIVE (NEGATIVE); PH,URINE 5.5 (5-9); PROTEIN,URINE NEGATIVE (NEGATIVE)
[2021-04-26 07:14] LABS: BASOPHILS # (AUTO) 0.1 10^3/uL (0.0-0.1); BASOPHILS % (AUTO) 1 % (0-10); EOSINOPHILS # (AUTO) 0.3 10^3/uL (0.0-0.3); EOSINOPHILS % (AUTO) 3 % (0-10); HEMATOCRIT 41 % (40-54); HEMOGLOBIN 14.3 g/dL (13.3-17.7); LYMPHOCYTES # (AUTO) 3.6 10^3/uL (1.0-4.0); LYMPHOCYTES % (AUTO) 36 % (12-44); MEAN CORPUSCULAR HEMOGLOBIN 30 pg (25-34); MEAN CORPUSCULAR HGB CONC 35 g/dL (32-36); MEAN CORPUSCULAR VOLUME 86 fL (80-99); MEAN PLATELET VOLUME 9.6 fL (9.0-12.2); MONOCYTES # (AUTO) 0.5 10^3/uL (0.0-1.0); MONOCYTES % (AUTO) 6 % (0-12); NEUTROPHILS # (AUTO) 5.3 10^3/uL (1.8-7.8); NEUTROPHILS % (AUTO) 54 % (42-75); PLATELET COUNT 266 10^3/uL (130-400); WHITE BLOOD COUNT 9.9 10^3/uL (4.3-11.0)
[2021-04-26] MEDS ORDERED: ONDANSETRON 4 MG/2 ML (SDV) Z0FRAN IVP ONE (07:15)
[2021-04-26 07:16] LABS: RBC,URINE >100 /HPF
[2021-04-26 07:17] LABS: BACTERIA,URINE NEGATIVE /HPF; SQUAMOUS EPITHELIAL CELL,UR RARE /HPF; WBC,URINE RARE /HPF
[2021-04-26 07:29] LABS: ALBUMIN 3.9 GM/DL (3.2-4.5); POTASSIUM 4.2 MMOL/L (3.6-5.0)
[2021-04-26 07:30] LABS: CALCIUM 8.8 MG/DL (8.5-10.1)
[2021-04-26 07:31] LABS: TOTAL PROTEIN 7.4 GM/DL (6.4-8.2)
[2021-04-26 07:33] LABS: BILIRUBIN,TOTAL 0.2 MG/DL (0.1-1.0)
[2021-04-26 07:35] LABS: CREATININE SERUM 0.94 MG/DL (0.60-1.30)
--- NOTE | 2021-04-26 07:36 | ED GU-Male ---
General Stated Complaint: KIDNEY STONE Source: patient Exam Limitations: no limitations History of Present Illness Date Seen by Provider: Apr 26, 2021 Time Seen by Provider: 06:56 Initial Comments Here with report of acute onset of left flank pain that radiates down to the lower back. States it woke him up from sleep about 2 to 3 hours ago. He has not had anything for the pain. He was told at one point previously that he may have kidney stones. Denies vomiting but has some nausea with the pain. Denies fever chills. Denies any recent injuries. Denies blood in his urine or stool. Timing/Duration: this morning Severity/Quality: moderate Location: left flank Radiation: other (Low back) Activities at Onset: sleep Prior Genitourinary Problems: none Modifying Factors: Worsens With Palpation; Improves With Resting Associated Symptoms: No abdominal pain, No fever/chills; lower back pain, nausea/vomiting Allergies and Home Medications Allergies Coded Allergies: hydrocodone (Verified Adverse Reaction, Unknown, MIGRAIN, 06/27/19) oxycodone (Verified Adverse Reaction, Unknown, MAKES ME ANGRY, 01/11/20) Patient Home Medication List Home Medication List Reviewed: Yes Azithromycin (Zithromax) 500 Mg Tablet, 500 MG PO DAILY Prescribed by: SALOMÓN FERNANDEZ on 01/09/21 0035 Benzonatate (Tessalon Perles) 100 Mg Capsule, 200 MG PO TID Prescribed by: SALOMÓN FERNANDEZ on 01/09/21 0048 Cephalexin (Cephalexin) 500 Mg Tablet, 500 MG PO TID Prescribed by: BURT OSCAR on 03/30/21 1601 Cetirizine HCl (Zyrtec) 10 Mg Capsule, 10 MG PO DAILY, (Reported) Entered as Reported by: NARESH VELASCO on 09/18/15 0923 Diphenhydramine HCl (Benadryl) 25 Mg Capsule, 25 MG PO HS, (Reported) Entered as Reported by: NARESH VELASCO on 07/27/19 1800 Esomeprazole Magnesium (Nexium) 40 Mg Cap, 40 MG PO DAILY, (Reported) Entered as Reported by: NARESH VELASCO on 07/27/19 1800 Guaifenesin (Mucinex) Unknown Strength Tab.er.12h, Unknown Dose PO, (Reported) Entered as Reported by: DINORAH HILLMAN on 05/14/20 1016 Ondansetron (Ondansetron Odt) 8 Mg Tab.rapdis, 8 MG PO Q6H PRN for NAUSEA/VOMITING Prescribed by: RAYNE GUTIERREZ on 04/17/21 1834 Review of Systems Review of Systems Constitutional: No chills, No fever EENTM: No nose congestion, No throat pain Respiratory: No cough, No short of breath Cardiovascular: No chest pain, No edema Gastrointestinal: nausea; No vomiting Genitourinary: dysuria, flank pain Musculoskeletal: see HPI Skin: No change in color, No lesions Psychiatric/Neurological: No Symptoms Reported All Other Systemes Reviewed Negative Unless Noted: Yes Past Rjujvto-Hktome-Jvmsuu Hx Patient Social History Tobacco Use?: No Substance use?: No Alcohol Use?: No Immunizations Up To Date Tetanus Booster (TDap): Unknown Seasonal Allergies Seasonal Allergies: Yes Past Medical History Surgery/Hospitalization HX: HERNIA REPAIR Surgeries: Yes (BILAT INGUINAL HERNIA SX, circ) Respiratory: Yes (COVID-14 APRIL 2020-NO TREATMENT OR HOSPITALIZATION) Cardiac: No Neurological: No Reproductive Disorders: No Sexually Transmitted Disease: No Genitourinary: No Gastrointestinal: Yes (terminal ileitis) Gastroesophageal Reflux Musculoskeletal: No Endocrine: No HEENT: Yes (ALLERGIES; GLASSES) Cancer: No Psychosocial: No Integumentary: No Blood Disorders: No Family Medical History Reviewed Nursing Family Hx No Pertinent Family Hx Physical Exam Vital Signs Vital Signs - First Documented 04/26/21 06:55 Temp 36.3 Pulse 96 Resp 18 B/P (MAP) 170/110 (130) Pulse Ox 99 Capillary Refill : Height, Weight, BMI Height: 5'5.00" Weight: 200lbs. oz. 90.449149eg; 30.00 BMI Method:Stated General Appearance: WD/WN, no apparent distress HEENT: PERRL/EOMI, pharynx normal Neck: full range of motion, supple Cardiovascular: regular rate, rhythm, no murmur Respiratory: lungs clear, normal breath sounds Gastrointestinal: normal bowel sounds, non tender, soft Back: no vertebral tenderness; No CVA tenderness (R); CVA tenderness (L) Extremities: non-tender, normal inspection Neurologic/Psychiatric: alert, oriented x 3 Skin: normal color, warm/dry Progress/Results/Core Measures Suspected Sepsis SIRS Temperature: Pulse: Respiratory Rate: Laboratory Tests 04/26/21 07:08: White Blood Count 9.9 Blood Pressure / Mean: Laboratory Tests 04/26/21 07:08: Creatinine 0.94, Platelet Count 266, Total Bilirubin 0.2 Results/Orders Lab Results Laboratory Tests Test 04/26/21 06:58 04/26/21 07:08 Range/Units Urine Color YELLOW Urine Clarity CLEAR Urine pH 5.5 5-9 Urine Specific Nickerson 1.025 H 1.016-1.022 Urine Protein NEGATIVE NEGATIVE Urine Glucose (UA) NEGATIVE NEGATIVE Urine Ketones NEGATIVE NEGATIVE Urine Nitrite NEGATIVE NEGATIVE Urine Bilirubin NEGATIVE NEGATIVE Urine Urobilinogen 0.2 < = 1.0 MG/DL Urine Leukocyte Esterase NEGATIVE NEGATIVE Urine RBC (Auto) 3+ H NEGATIVE Urine RBC >100 H /HPF Urine WBC RARE /HPF Urine Squamous Epithelial Cells RARE /HPF Urine Crystals NONE /LPF Urine Bacteria NEGATIVE /HPF Urine Casts NONE /LPF Urine Mucus NEGATIVE /LPF Urine Culture Indicated NO White Blood Count 9.9 4.3-11.0 10^3/uL Red Blood Count 4.82 4.30-5.52 10^6/uL Hemoglobin 14.3 13.3-17.7 g/dL Hematocrit 41 40-54 % Mean Corpuscular Volume 86 80-99 fL Mean Corpuscular Hemoglobin 30 25-34 pg Mean Corpuscular Hemoglobin Concent 35 32-36 g/dL Red Cell Distribution Width 12.0 10.0-14.5 % Platelet Count 266 130-400 10^3/uL Mean Platelet Volume 9.6 9.0-12.2 fL Immature Granulocyte % (Auto) 1 % Neutrophils (%) (Auto) 54 42-75 % Lymphocytes (%) (Auto) 36 12-44 % Monocytes (%) (Auto) 6 0-12 % Eosinophils (%) (Auto) 3 0-10 % Basophils (%) (Auto) 1 0-10 % Neutrophils # (Auto) 5.3 1.8-7.8 10^3/uL Lymphocytes # (Auto) 3.6 1.0-4.0 10^3/uL Monocytes # (Auto) 0.5 0.0-1.0 10^3/uL Eosinophils # (Auto) 0.3 0.0-0.3 10^3/uL Basophils # (Auto) 0.1 0.0-0.1 10^3/uL Immature Granulocyte # (Auto) 0.1 0.0-0.1 10^3/uL Sodium Level 139 135-145 MMOL/L Potassium Level 4.2 3.6-5.0 MMOL/L Chloride Level 105 98-107 MMOL/L Carbon Dioxide Level 20 L 21-32 MMOL/L Anion Gap 14 5-14 MMOL/L Blood Urea Nitrogen 12 7-18 MG/DL Creatinine 0.94 0.60-1.30 MG/DL Estimat Glomerular Filtration Rate 89 BUN/Creatinine Ratio 13 Glucose Level 162 H 70-105 MG/DL Calcium Level 8.8 8.5-10.1 MG/DL Corrected Calcium 8.9 8.5-10.1 MG/DL Total Bilirubin 0.2 0.1-1.0 MG/DL Aspartate Amino Transf (AST/SGOT) 27 5-34 U/L Alanine Aminotransferase (ALT/SGPT) 45 0-55 U/L Alkaline Phosphatase 81 40-136 U/L C-Reactive Protein High Sensitivity 1.05 H 0.00-0.50 MG/DL Total Protein 7.4 6.4-8.2 GM/DL Albumin 3.9 3.2-4.5 GM/DL My Orders Orders - BESS RAZO MD Cbc With Automated Diff (04/26/21 07:02) Comprehensive Metabolic Panel (04/26/21 07:02) Hs C Reactive Protein (04/26/21 07:02) Ua Culture If Indicated (04/26/21 07:02) Ns Iv 1000 Ml (Sodium Chloride 0.9%) (04/26/21 07:02) Ed Iv/Invasive Line Start (04/26/21 07:02) Ketorolac Injection (Toradol Injection) (04/26/21 07:02) Ct Abd/Pelvis Wo(Kidney Stone) (04/26/21 07:02) Ondansetron Injection (Zofran Injectio (04/26/21 07:15) Abdomen/Kub 1view (04/26/21 08:28) Medications Given in ED Current Medications Medications Dose Ordered Sig/Janice Route Start Time Stop Time Status Last Admin Dose Admin Ondansetron HCl 4 mg ONCE ONCE IVP 04/26/21 07:15 04/26/21 07:16 DC 04/26/21 07:19 4 MG Vital Signs/I&O 04/26/21 06:55 Temp 36.3 Pulse 96 Resp 18 B/P (MAP) 170/110 (130) Pulse Ox 99 Capillary Refill : Progress Note : Progress Note Seen and evaluated. IV, labs, UA, CT abdomen pelvis kidney stone protocol ordered. Normal saline 1 L bolus, Toradol 30 mg IV and Zofran 4 mg IV ordered. Monitor patient. 0843: Doing better now. CT results noted and discussed with patient. Likely passed stone. We will do outpatient Keflex for 3 days continue p.o. fluids as well as Tylenol and ibuprofen. Patient admits that he did have recent GI illness on was probably quite dehydrated. He tried to catch up yesterday but is likely still catching up. The IV fluid will help. Discharged home with return precautions. Patient verbalized understanding of instructions and agreement with plan. Diagnostic Imaging Diagonstic Imaging: CT Plain Films/CT/US/NM/MRI: abdomen, pelvis Comments [facility], [place] NAME: CHETAN VILLALOBOS [facility] REC#: [id number] PT STATUS: REG ER : 1980 PHYSICIAN: BESS RAZO MD ADMIT DATE: 04/26/21/ER Draft Date of Exam:04/26/21 CT ABD/PELVIS WO(KIDNEY STONE) PROCEDURE: CT urinary tract, rule out kidney stone. TECHNIQUE: Multiple contiguous axial images were obtained through the abdomen and pelvis without the use of intravenous contrast. Auto Exposure Controls were utilized during the CT exam to meet ALARA standards for radiation dose reduction. INDICATION: Flank pain. History of kidney stones. COMPARISON: CT abdomen and pelvis with IV contrast 04/17/2021. FINDINGS: Single punctate nonobstructing 0.2 cm renal stone in the right kidney. No left renal stones. There is mild ectasia of the left ureter compared to the contralateral side with no obstructing lesion or ureteral stone identified. Phleboliths in the pelvis. The lung bases are clear. No free intraperitoneal air or fluid. The liver, gallbladder, pancreas, spleen, adrenals, bladder are negative. No evidence of appendicitis. No lymphadenopathy. No evidence of bowel obstruction. No acute osseous findings. IMPRESSION: 1. Mild left ureterectasis without obstructing lesion or renal stone identified. Findings could be due to an infectious/inflammatory process or recent passage of a renal stone. 2. Punctate nonobstructing 0.2 cm renal stone in the right kidney. No right ureteral pyelocaliectasis. Dictated on workstation # [id number] Dict: 04/26/21802 Trans: 04/26/21810 JOSE [id number] Interpreted by: HIMA JULIAN MD Electronically signed by: Departure Impression Primary Impression: Left ureteral stone Disposition: HOME, SELF-CARE Condition: Improved Departure-Patient Inst. Decision time for Depature: 08:44 Referrals: [facility] [place] (PCP) Primary Care Physician NANDINI OLGUIN APRN (Family) Primary Care Physician Patient Instructions: Kidney Stone, Adult ED Add. Discharge Instructions: Drink plenty of fluids. You may take ibuprofen 600 mg every 8 hours as needed for pain. You may also take Tylenol/acetaminophen 1000 mg every 8 hours as needed for pain. Follow-up with your doctor in a few days for recheck. Take medications as directed. Return for worse pain, fever, vomiting, weakness, breathing problems or other concerns as needed. Scripts Cephalexin (Cephalexin) 500 Mg Tablet 500 MG PO BID, #6 TAB 0 Refills Prov: BESS RAZO MD 04/26/21 BESS RAZO MD Apr 26, 2021 07:36
--- NOTE | 2021-04-26 08:13 | Diagnostic Imaging Report ---
PROCEDURE: CT urinary tract, rule out kidney stone. TECHNIQUE: Multiple contiguous axial images were obtained through the abdomen and pelvis without the use of intravenous contrast. Auto Exposure Controls were utilized during the CT exam to meet ALARA standards for radiation dose reduction. INDICATION: Flank pain. History of kidney stones. COMPARISON: CT abdomen and pelvis with IV contrast 04/17/2021. FINDINGS: Single punctate nonobstructing 0.2 cm renal stone in the right kidney. No left renal stones. There is mild ectasia of the left ureter compared to the contralateral side with no obstructing lesion or ureteral stone identified. Phleboliths in the pelvis. The lung bases are clear. No free intraperitoneal air or fluid. The liver, gallbladder, pancreas, spleen, adrenals, bladder are negative. No evidence of appendicitis. No lymphadenopathy. No evidence of bowel obstruction. No acute osseous findings. IMPRESSION: 1. Mild left ureterectasis without obstructing lesion or renal stone identified. Findings could be due to an infectious/inflammatory process or recent passage of a renal stone. 2. Punctate nonobstructing 0.2 cm renal stone in the right kidney. No right ureteral pyelocaliectasis. Dictated by: Dictated on workstation # [id number]
[2021-04-26] MEDS ORDERED: CEPH500T PO (08:45)
[2021-04-26 09:13] VITALS: BP 159/97
[2021-04-26] MEDS ORDERED: TRAM-42 PO (19:57)
== END 2021-04-26 09:13 | disposition home or self-care (01) ==
LOC: EDUNIT# 06:46 → ER 06:48
DX: N20.1 Calculus of ureter (principal); K21.9 Gastro-esophageal reflux disease without esophagitis; Z79.899 Other long term (current) drug therapy
CPT/HCPCS: 36415; 74176; 80053; 81000; 85025; 86141

== ENCOUNTER 2021-04-26 19:14 | Emergency (ER) | payer BC ==
[~2021-04-26] VITALS: Ht 165 cm; Wt 86.3 kg
[2021-04-26] MEDS ORDERED: morphine INJ 10 MG/ML 1ML (SYR OR VIAL) IM STA (19:26)
--- NOTE | 2021-04-26 19:33 | ED GU-Male ---
General Chief Complaint: Abdominal/GI Problems Stated Complaint: KIDNEY STONE PAIN Source: patient Exam Limitations: no limitations History of Present Illness Date Seen by Provider: Apr 26, 2021 Time Seen by Provider: 19:31 Initial Comments To ER with poorly controlled left flank pain. He initially noticed this this morning at about 430. He presented here to the emergency room later on in the morning and was found to have significant hematuria with ureterectasis on the left but no visualized stone. He denies fevers or chills. He was given Toradol and some fluids and prescription for cephalexin. He has no history of kidney stones. He has been at home taking Tylenol and Motrin throughout the day today but denies much improvement. Timing/Duration: constant Severity/Quality: moderate Location: left flank Radiation: none Activities at Onset: none Prior Genitourinary Problems: none Associated Symptoms: denies symptoms Allergies and Home Medications Allergies Coded Allergies: hydrocodone (Verified Adverse Reaction, Unknown, MIGRAIN, 06/27/19) oxycodone (Verified Adverse Reaction, Unknown, MAKES ME ANGRY, 01/11/20) Patient Home Medication List Home Medication List Reviewed: Yes Azithromycin (Zithromax) 500 Mg Tablet, 500 MG PO DAILY Prescribed by: SALOMÓN FERNANDEZ on 01/09/21 0035 Benzonatate (Tessalon Perles) 100 Mg Capsule, 200 MG PO TID Prescribed by: SALOMÓN FERNANDEZ on 01/09/21 0048 Cephalexin (Cephalexin) 500 Mg Tablet, 500 MG PO TID Prescribed by: BURT OSCAR on 03/30/21 1601 Cephalexin (Cephalexin) 500 Mg Tablet, 500 MG PO BID Prescribed by: BESS RAZO on 04/26/21 0845 Cetirizine HCl (Zyrtec) 10 Mg Capsule, 10 MG PO DAILY, (Reported) Entered as Reported by: NARESH VELASCO on 09/18/15 0923 Diphenhydramine HCl (Benadryl) 25 Mg Capsule, 25 MG PO HS, (Reported) Entered as Reported by: NARESH VELASCO on 07/27/19 1800 Esomeprazole Magnesium (Nexium) 40 Mg Cap, 40 MG PO DAILY, (Reported) Entered as Reported by: NARESH VELACSO on 07/27/19 1800 Guaifenesin (Mucinex) Unknown Strength Tab.er.12h, Unknown Dose PO, (Reported) Entered as Reported by: DINORAH HILLMAN on 05/14/20 1016 Ondansetron (Ondansetron Odt) 8 Mg Tab.rapdis, 8 MG PO Q6H PRN for NAUSEA/VOMITING Prescribed by: RAYNE GUTIERREZ on 04/17/211833 Tramadol HCl (Ultram) 50 Mg Tablet, 50 MG PO Q6H PRN for PAIN-MODERATE (5-7) Prescribed by: RAYNE GUTIERREZ on 04/26/211957 Review of Systems Review of Systems Constitutional: see HPI EENTM: see HPI Cardiovascular: no symptoms reported Genitourinary: see HPI Musculoskeletal: no symptoms reported Skin: no symptoms reported Psychiatric/Neurological: No Symptoms Reported Endocrine: No Symptoms Reported Hematologic/Lymphatic: No Symptoms Reported Past Oqwkyjo-Toxlyt-Jniikj Hx Immunizations Up To Date Tetanus Booster (TDap): Unknown Seasonal Allergies Seasonal Allergies: Yes Past Medical History Surgery/Hospitalization HX: HERNIA REPAIR Surgeries: Yes (BILAT INGUINAL HERNIA SX, circ) Respiratory: Yes (COVID-14 APRIL 2020-NO TREATMENT OR HOSPITALIZATION) Cardiac: No Neurological: No Reproductive Disorders: No Sexually Transmitted Disease: No Genitourinary: No Gastrointestinal: Yes (terminal ileitis) Gastroesophageal Reflux Musculoskeletal: No Endocrine: No HEENT: Yes (ALLERGIES; GLASSES) Cancer: No Psychosocial: No Integumentary: No Blood Disorders: No Family Medical History No Pertinent Family Hx Physical Exam Vital Signs Vital Signs - First Documented 04/26/21 19:24 Temp 36.8 Pulse 88 Resp 18 B/P (MAP) 172/116 (134) Pulse Ox 98 O2 Delivery Room Air Capillary Refill : Height, Weight, BMI Height: 5'5.00" Weight: 200lbs. oz. 90.090272vp; 31.00 BMI Method:Stated General Appearance: WD/WN, no apparent distress HEENT: PERRL/EOMI, normal ENT inspection Neck: non-tender, full range of motion Respiratory: no respiratory distress, no accessory muscle use Gastrointestinal: normal bowel sounds, non tender, soft Back: CVA tenderness (L) Extremities: normal range of motion, non-tender Neurologic/Psychiatric: alert, normal mood/affect, oriented x 3 Skin: normal color, warm/dry Progress/Results/Core Measures Suspected Sepsis SIRS Temperature: Pulse: Respiratory Rate: Blood Pressure / Mean: Results/Orders My Orders Orders - RAYNE GUTIERREZ APRN Rx-Tramadol Hcl (Rx-Ultram) (04/26/21 19:26) Morphine Injection (Morphine Injection (04/26/21 19:26) Vital Signs/I&O 04/26/21 19:24 Temp 36.8 Pulse 88 Resp 18 B/P (MAP) 172/116 (134) Pulse Ox 98 O2 Delivery Room Air Capillary Refill : Departure Impression Primary Impression: Left flank pain Disposition: HOME, SELF-CARE Condition: Stable Departure-Patient Inst. Decision time for Depature: 19:55 Referrals: [facility] [place] (PCP) Primary Care Physician NANDINI OLGUIN APRN (Family) Primary Care Physician ABRAN HORNE MD Patient Instructions: Flank Pain (DC) Add. Discharge Instructions: All discharge instructions reviewed with patient and/or family. Voiced understanding.1. Increase fluid intake. Call Dr. Horne tomorrow to make an appointment to be seen return to ER for any worsening. Scripts Tramadol HCl (Ultram) 50 Mg Tablet 50 MG PO Q6H PRN for PAIN-MODERATE (5-7), #14 TAB Prov: RAYNE GUTIERREZ APRN 04/26/21 RAYNE GUTIERREZ APRN Apr 26, 2021 19:33
[2021-04-26] MEDS ORDERED: TRAM-42 PO (19:57)
[2021-04-26 20:10] VITALS: BP 156/90
== END 2021-04-26 20:10 | disposition home or self-care (01) ==
LOC: EDUNIT# 19:14 → ER 19:16
DX: R10.9 Unspecified abdominal pain (principal); K21.9 Gastro-esophageal reflux disease without esophagitis; Z79.899 Other long term (current) drug therapy
CPT/HCPCS: 99284

== ENCOUNTER → 2023-05-17 | Outpatient (CLI) | payer BC, OTHER ==
--- NOTE | 2023-05-17 12:01 | Diagnostic Imaging Report ---
US SCROTUM (Testicle) [id number] TECHNIQUE: Ann-scale, color doppler and spectral duplex imaging of the scrotum and its contents was performed. INDICATION: Left-sided testicular pain. COMPARISON: None available. FINDINGS: Right: The right testis is normal in size measuring 3.9 x 2.4 x 2.1 cm. It has homogenous echogenicity without mass or microcalcification. Blood flow is present in the right testis by color doppler imaging, and low resistance waveforms are present. Epididymis is normal. No hydrocele or varicole. Left: The left testis is normal in size measuring 3.6 x 2.7 x 2.8 cm. It has homogenous echogenicity without mass or microcalcification. Blood flow is present in the left testis by color doppler imaging, and low resistance waveforms are present. The epididymis is normal. Kejvv-lm-fqsrteyz-sized hydrocele is simple in appearance. No varicocele. IMPRESSION: 1. No testicular mass on either side. 2. Nzosj-kp-cfakxdfe left-sided hydrocele. Dictated by: Dictated on workstation # [id number]
== END ==
LOC: RAD 07:36
PROVIDERS: ATTEND Specialist
DX: N43.3 Hydrocele, unspecified (principal); M45.1 Ankylosing spondylitis of occipito-atlanto-axial region
CPT/HCPCS: 76870

== ENCOUNTER 2023-05-26 05:30 | Outpatient (CLI) | payer OTHER ==
[~2023-05-26] VITALS: Ht 165.1 cm; Wt 83.2 kg
[2023-05-26] MEDS ORDERED: TERB250T88 PO (09:32)
[2023-05-26] MEDS ORDERED: LORA-1389 PO (09:32)
[2023-05-26] MEDS ORDERED: EMPA10TA PO (09:51)
== END 2023-05-27 08:14 ==
LOC: PREOP 05:30
PROVIDERS: ATTEND Specialist
DX: Z01.818 Encounter for other preprocedural examination (principal)

== ENCOUNTER 2023-06-02 06:28 | Day surgery (SDC) | payer OTHER ==
[2023-06-02] VITALS (8 sets, daily range): BP systolic 112–139; BP diastolic 61–98
[~2023-06-02] VITALS: Ht 165 cm; Wt 83.2 kg
[~2023-06-02 06:28] MED LIST changes: +EMPA10TA PO; +LORA-1389 PO; +TERB250T88 PO
[2023-06-02] MEDS ORDERED: LACTATED RINGERS 1,000 ML 1,000 ML IV PRN (06:45)
[2023-06-02] MEDS ORDERED: ceFAZolin INJECTION 1,000 MG in NS (IVPB) 50 ML 50 ML IV ONE (06:45)
[2023-06-02] MEDS ORDERED: BUPIVACAINE 0.25% 30 ML VIAL ONE (07:22)
--- NOTE | 2023-06-02 08:02 | Progress Note-Pre Operative ---
Pre-Operative Progress Note Date of Available H&P: May 11, 2023 Date H&P Reviewed: Jun 02, 2023 Time H&P Reviewed: 08:01 History & Physical: H&P Reviewed, No changes noted Pre-Operative Diagnosis: left hydrocele Silke DILLON MD Jun 02, 2023 08:01
[2023-06-02] MEDS ORDERED: LIDOCAINE PF 2% 5 ML VIAL ONE (08:39)
[2023-06-02] MEDS ORDERED: ONDANSETRON INJECTION 4 MG/2 ML (SDV) ONE (08:39)
[2023-06-02] MEDS ORDERED: proPOfol INJECTION 200 MG/20 ML VIAL IV ONE (08:39)
[2023-06-02] MEDS ORDERED: MIDAZOLAM INJ 2 MG/2 ML VIAL ONE (08:40)
[2023-06-02] MEDS ORDERED: fentaNYL INJECTION 100 MCG/2 ML VIAL ONE (08:40)
[2023-06-02] MEDS ORDERED: ROCURONIUM 50 MG/5 ML VIAL IV ONE (08:55)
[2023-06-02] MEDS ORDERED: BUPIVACAINE 0.25% 30 ML VIAL INJ ONE (09:03)
[2023-06-02] MEDS ORDERED: GLYCOPYRROLATE INJ 0.2 MG/ML 2 ML VIAL ONE (09:10)
[2023-06-02] MEDS ORDERED: NEOSTIGMINE 1 MG/1ML 10 ML VIAL ONE (09:10)
[2023-06-02] MEDS ORDERED: SEVOFLURANE (ULTANE) 15 ML INHAL SOLN ONE (09:19)
--- NOTE | 2023-06-02 09:21 | Progress Note-Post Operative ---
Post-Operative Progess Note Surgeon (s)/Annealer (s) Surgeon Silke DILLON MD Annealer n/a Pre-Operative Diagnosis left hydrocele Post-Operative Diagnosis same Post-Op Procedure Note Date of Procedure: Jun 02, 2023 Name of Procedure Performed: left hydrocelectomy Description & Findings Description and Findings: n/a Estimated Blood Loss minimal Packing none. Specimen(s) collected/removed none Silke DILLON MD Jun 02, 2023 09:21
--- NOTE | 2023-06-02 09:24 | Discharge Inst-Urology ---
Discharge Inst-Urology Reconcile Patient Problems Final Diagnosis left hydrocele Patient Instructions/Follow Up Plan/Assessment/Instructions Please make appointment to been seen in office in 4 weeks. Increase oral fluids for 48 hours and then as needed. Diet as tolerated. scrotal support ice to scrotum every 4 hours, and as needed ibuprofen for pain If questions or concerns contact your physician Or seek help at emergency department. Silke DILLON MD Jun 02, 2023 09:24
[2023-06-02] MEDS ORDERED: ONDANSETRON INJECTION 4 MG/2 ML (SDV) IVP PRN (09:30)
[2023-06-02] MEDS ORDERED: HYDROmorphone INJECTION 2 MG/ML VIAL IV ONE (09:30)
[2023-06-02] MEDS ORDERED: morphine INJ 10 MG/ML 1ML (SYR OR VIAL) IVP ONE (09:30)
--- NOTE | 2023-06-02 10:34 | Anesthesia-General Post-Op ---
General Patient Condition Mental Status/LOC: Same as Preop Cardiovascular: Satisfactory Nausea/Vomiting: Absent Respiratory: Satisfactory Pain: Controlled Complications: Absent Post Op Complications Complications None Follow Up Care/Instructions Patient Instructions None needed. Anesthesia/Patient Condition Patient Condition Patient is doing well, no complaints, stable vital signs, no apparent adverse anesthesia problems. No complications reported per nursing. MARSHALL LYNN CRNA Jun 02, 2023 10:34
--- NOTE | 2023-06-02 19:28 | OPERATIVE REPORT ---
DATE OF SERVICE: 06/02/2023 PREOPERATIVE DIAGNOSIS: Left hydrocele. POSTOPERATIVE DIAGNOSIS: Left hydrocele. PROCEDURE PERFORMED: Left hydrocelectomy. INDICATIONS FOR SURGERY: Please see history and physical. DESCRIPTION OF PROCEDURE: After informed consent was obtained, general anesthetic was administered. The patient received IV Ancef. He was prepped and draped in supine position. Incision was made in the median raphe and taken down through subcutaneous tissue of the scrotum using electrocautery. The left hemiscrotum was entered. Left testicle and hydrocele were brought out through the wound. Hydrocele sac was incised. I drained approximately 15 mL of fluid. Due to the tight hydrocele sac, an incision was made in the capsule of the testicle. This was closed with 3-0 chromic suture. Hemostasis was assured. Hydrocele sac was then imbricated behind the testicle in Jaboulay fashion with interrupted 3-0 chromic suture. 0.25% Marcaine was infiltrated into the spermatic cord as a cord block. Testicle was replaced within the left hemiscrotum and the wound closed in 2 layers with running 3-0 locking chromic suture to close the dartos muscle of the scrotum and a running 2-0 chromic suture to close the skin. Fluff gauze and scrotal support were applied. The patient was then taken to recovery room having tolerated the procedure well. Plan will be to send him home on ibuprofen, ice, scrotal support and light activities. He will follow up in the office in approximately a month. Job ID: [id number] DocumentID: [id number] Dictated Date: 06/02/2023 09:18:49 Ticker Wirer Date: 06/02/2023 19:26:00 Dictated By: Aamir DILLON MD
== END 2023-06-02 10:55 | disposition home or self-care (01) ==
LOC: SDC 06:28
PROVIDERS: ATTEND Specialist
DX: N43.3 Hydrocele, unspecified (principal); N45.1 Epididymitis; K21.9 Gastro-esophageal reflux disease without esophagitis
CPT/HCPCS: 82947; 87081